=== PATIENT | male | born 1960 | race Hispanic/Latino ===

== ENCOUNTER 2021-06-12 13:31 | Emergency (ER) | payer BC ==
--- OUTSIDE RECORDS SUMMARY | 2021-06-12 13:33 | XMS REPORT | Continuity of Care Document ---
:1960 Author Organization [facility] t Address [address] [place] [address] Care Team Providers Name Role Phone YURIDIA Attending Clinician Unavailable MARYANNE Attending Clinician Unavailable Gino Attending Clinician Unavailable YURIDIA Admitting Clinician Unavailable MARYANNE Admitting Clinician Unavailable Gino Admitting Clinician Unavailable Payers Payer Name Policy Type Policy Number Effective Date Expiration Date S ource Problems Condition Condition Condition Status Onset Resolution Last Treating Co mments Source Name Details Category Date Date Treatment Clinician Date Vitamin D Vitamin D Problem Active [place] deficiency Deficiency 5-24 [facility]: [facility] Regular Regular Problem Active [place] astigmatis Astigmatis 5-04 da m m 00:00: [facility] Presbyopia Presbyopia Problem Active M [place] 5-04 da 00:00: [facility] 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 Social History Smoking Status Start Date Stop Date Source Never Smoker [facility] Medications Ordered Filled Start Stop Current Ordering Indication Dosage Frequency Signature Comments Components Source Medication Medication Date Date Medication? Clinician (SIG) Name Name diclofenac diclofenac No 1 BID diclofenac [place] sodium 75 sodium 75 sodium 75 da mg mg mg Medical tablet,chiki tablet,chiki tablet,del Group yed release yed release ayed Take 1 Take 1 release tablet tablet Take 1 twice a day twice a day tablet by oral by oral twice a route. route. day by oral route. naproxen naproxen No naproxen [facility] cholecalcif cholecalcif No 1capsul Q1D cholecalci [place] erica erica e(s) ferol da (vitamin (vitamin (vitamin Epi scop D3) 125 mcg D3) 125 mcg D3) 125 al (5,000 (5,000 mcg (5,000 Healt h unit) unit) unit) Outreac capsule capsule capsule h Take 1 Take 1 Take 1 Program capsule capsule capsule every day every day every day by oral by oral by oral route. route. route. doxycycline doxycycline No 1capsul BID doxycyclin [place] monohydrate monohydrate e(s) e d a 100 mg 100 mg monohydrat [facility] capsule capsule e 100 mg al Take 1 Take 1 capsule Health capsule capsule Take 1 Outreac twice a day twice a day capsule h by oral by oral twice a Progra m route for route for day by 30 days. 30 days. oral route for 30 days. hydroxychlo hydroxychlo No hydroxychl [place] roquine 200 roquine 200 oroquine da mg tablet mg tablet 200 mg Epi scop TAKE 1 TAKE 1 tablet al TABLET TABLET TAKE 1 Health TWICE A DAY TWICE A DAY TABLET Outreac BY ORAL BY ORAL TWICE A h ROUTE. ROUTE. DAY BY Program ORAL ROUTE. meloxicam meloxicam No 1 Q1D meloxicam [place] 15 mg 15 mg 15 mg da tablet Take tablet Take tablet [facility] 1 tablet 1 tablet Take 1 al every day every day tablet Hea lth by oral by oral every day Outr eac route with route with by oral h meals for meals for route with Program 90 days. 90 days. meals for 90 days. spironolact spironolact No 1 TID spironolac [place] one 50 mg one 50 mg tone 50 mg da tablet Take tablet Take tablet [facility] 1 tablet 3 1 tablet 3 Take 1 a l times a day times a day tablet 3 Health by oral by oral times a Outrea c route as route as day by h directed. directed. oral route Program as directed. sulfasalazi sulfasalazi No 2 BID sulfasalaz [place] ne 500 mg ne 500 mg ine 500 mg da tablet,chiki tablet,chiki tablet,del [facility] yed release yed release ayed a l Take 2 Take 2 release Health tablets tablets Take 2 Outreac twice a day twice a day tablets h by oral by oral twice a Progra m route for route for day by 90 days. 90 days. oral route for 90 days. 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 [facility] Index) Health Outreach Program BP Systolic 2021-03-14 00:00:00 114 mm[Hg] [facility] Body Weight 2021-03-14 00:00:00 3008 [oz_av] [facility] BP Diastolic 2021-03-14 00:00:00 68 mm[Hg] [facility] BP Diastolic 2021-01-16 00:00:00 74 mm[Hg] [facility]reach Program Height 2021-01-16 00:00:00 66 [in_i] [facility] BMI (Body Mass 2021-01-16 00:00:00 29.1 kg/m2 [place] [facility] services specialist [facility] Index) Health Outreach Program BP Systolic 2021-01-16 00:00:00 124 mm[Hg] [facility] Body Weight 2021-01-16 00:00:00 2880 [facility]oz_av[facility] BP Diastolic 2020-12-25 00:00:00 74 mm[Hg] [facility] Height 2020-12-25 00:00:00 66 [in_i] [facility] BMI (Body Mass 2020-12-25 00:00:00 28.9 kg/m2 [place] [facility] Index) Health Outreach Program BP Systolic 2020-12-25 00:00:00 134 mm[Hg] [place] [facility] Body Weight 2020-12-25 00:00:00 2864 [oz_av] [place] [facility] Height 2020-09-03 00:00:00 66 [in_i] [place] [facility] BMI (Body Mass 2020-09-03 00:00:00 29.9 kg/m2 [place] [facility] services specialist Conf[facility] Index) [facility] Outreach Program Body Weight 2020-09-03 00:00:00 185 [lb_av] [facility] BMI (Body Mass 2020-06-14 00:00:00 29.9 kg/m2 [place] [facility] specialist [facility] Index) [facility] Outreach Program BP Systolic 2020-06-14 00:00:00 138 mm[Hg] [place] [facility] Body Weight 2020-06-14 00:00:00 2964.8 [oz_av] [place] [facility] BP Diastolic 2020-06-14 00:00:00 80 mm[Hg] [place] [facility] Height 2020-06-14 00:00:00 66 [in_i] [place] [facility] BP Diastolic 2020-05-24 00:00:00 80 mm[Hg] [place] [facility] Height 2020-05-24 00:00:00 66 [in_i] [place] [facility] BMI (Body Mass 2020-05-24 00:00:00 29.5 kg/m2 [place] [facility] Index) [facility] Outreach Program BP Systolic 2020-05-24 00:00:00 134 mm[Hg] [place] [facility] Body Weight 2020-05-24 00:00:00 2928 [oz_av] [place] [facility] BP Diastolic 2018-11-10 00:00:00 80 mm[Hg] [facility] [facility] Height 2018-11-10 00:00:00 66 [in_i] [facility] BMI (Body Mass 2018-11-10 00:00:00 30.8 kg/m2 [facility] Medical Index) Group BP Systolic 2018-11-10 00:00:00 140 mm[Hg] [facility] Body Weight 2018-11-10 00:00:00 191 [lb_av] [facility] BP Diastolic 2018-10-27 00:00:00 83 mm[Hg] [facility] Height 2018-10-27 00:00:00 66 [in_i] [facility] BMI (Body Mass 2018-10-27 00:00:00 30[facility]8 [facility] BP Systolic 2018-10-27 00:00:00 141 mm[Hg] [facility] Body Weight 2018-10-27 00:00:00 191 [lb_av] [facility] Procedures Procedure Date / Time Performed Performing Clinician [facility] e US, duplex, venous, 2020-12-25 00:00:00 Scout bales [facility] lower extremity Health Outreach Program Screening for 2020-07-04 00:00:00 Dean Salgado iscopal Malignant Neoplasm of Health Out reach Colon Program unlisted imaging order 2018-10-27 00:00:00 [facility] Plan of Care Planned Activity Planned Date Details Comments Source Diagnostic Test 2021-03-14 CBC w/ auto diff [code Delaney oliver Pending 00:00:00 = CBC w/ auto diff] [facility] Outreach Progra m Diagnostic Test 2021-03-14 C reactive protein, [place] Pending 00:00:00 QN, serum or plasma [facility] [code = C reactive Outreach Program protein, QN, serum or plasma] Diagnostic Test 2021-03-14 ESR (erythrocyte [place] Pending 00:00:00 sedimentation rate), [facility] blood [code = ESR Outreach P rogram (erythrocyte sedimentation rate), blood] Diagnostic Test 2021-03-14 CMP, serum or plasma Abdul remedios Pending 00:00:00 [code = CMP, serum or [facility] plasma] Outreach Progra m Diagnostic Test 2021-03-14 microalbumin/creatinin Delaney oliver Pending 00:00:00 e, mass ratio, urine [facility] [code = Outreach Progra m microalbumin/creatinin e, mass ratio, urine] Diagnostic Test 2021-03-14 SERG (antinuclear [place] Pending 00:00:00 antibodies) screen, [facility] serum [code = SERG Outreach P rogram (antinuclear antibodies) screen, serum] Diagnostic Test 2021-03-14 albumin/creatinine, [place] Pending 00:00:00 mass ratio, urine [facility] [code = Outreach Progra m albumin/creatinine, mass ratio, urine] Diagnostic Test 2021-03-14 vitamin D, 25-hydroxy, [place] Pending 00:00:00 total, serum [code = [facility] vitamin D, 25-hydroxy, Outre ach Program total, serum] Diagnostic Test 2021-03-14 lipid panel, serum [place] [facility] Pending 00:00:00 [code = lipid panel, [facility] serum] Outreach Progra m Diagnostic Test 2021-03-14 BNP (B-type [place] Pending 00:00:00 natriuretic peptide), [facility] serum or plasma [code Outrea Program = BNP (B-type natriuretic peptide), serum or plasma] Diagnostic Test 2021-03-14 magnesium, serum or [place] Pending 00:00:00 plasma [code = [facility] magnesium, serum or Outreach Program plasma] Diagnostic Test 2021-03-14 CMP, serum or plasma Abdul remedios Pending 00:00:00 [code = CMP, serum or [facility] plasma] Outreach Progra m Diagnostic Test 2021-03-14 D-dimer, quant, plasma [place] Pending 00:00:00 [code = D-dimer, [facility]lt quant, plasma] Outreach Prog frantz Encounters Start End Encounter Admission Attending Care Care Encounter Source Date/Time Date/Time Type Type Clinicians Facility Department ID 2021-03-14 2021-03-14 Outpatient MORAIMA ERNANDEZ [id number] [place] 04:46:00 04:46:[place] [id number] [place] [facility] Outreac h Program 2021-03-14 2021-03-14 Destiney ERNANDEZ [place] - [id number] [place] bonillagonathan 00:00:00 00:00:00 Kubeckamairani Galindo, Confuc[facility]ism [facility] CHEMICAL LABORATORY SCIENTIST: [address], [facility] [address] Progr am , Ph. 2021-01-16 2021-01-16 Outpatient GILBERT_BENNY [facility] 101 [id number] [place] 12:55:00 12:55:[place] [id number] [place] [facility] 2021-01-16 2021-01-16 [facility] [id number] [place] 00:00:00 00:00:00 Dean Vaughn FORMING TUBE SELECTOR-CHEMICAL LABORATORY SCIENTIST-C: [facility] Epi scop [address] [place] [address] Tessy am , Ph. 2020-12-25 2020-12-25 Outpatient GILBERT[facility]BENNY [facility] 101 [id number] [place] 04:00:00 04:[place] [id number] [place] [facility] 2020-12-25 2020-12-25 [facility] - [id number] [place] 00:00:00 00:00:00 Dean Vaughn FORMING TUBE SELECTOR-CHEMICAL LABORATORY SCIENTIST-C: [facility] [address] [facility] [address] Progr am , Ph. 2020-10-22 2020-10-22 Outpatient [facility]ERT[facility]BENNY [facility] 101 [id number] [place] 10:28:00 10:28:[place] [id number] [place] [facility] 2020-09-20 2020-09-20 Outpatient [facility]ERT[facility]KAT [facility] 101 [id number] [place] 02:15:00 02:15:[place] [id number] [place] [facility] 2020-09-03 2020-09-03 Outpatient GILBERT_KAT [facility] 101 [id number] [place] 12:03:00 12:03:[place] [id number] [place] [facility] 2020-09-03 2020-09-03 Gayle [facility] [place] - [id number] [place] 00:00:00 00:00:00 Dean Dean MD: 111 Confuc[facility]ism [facility] p [place] F, [facility] [place], [place] [facility] [address] [facility] , Ph. h ([phone]) Program 2020-07-10 2020-07-10 Outpatient TRIPP_BENNY [facility] 101 [id number] [place] 06:51:00 06:51:[place] [id number] [place] [facility] 2020-06-14 2020-06-14 Outpatient FABIOLABERT_BENNY [place] [id number] [place] 01:41:00 01:41:[place] [id number] [place] [facility] 2020-06-14 2020-06-14 Destiney [facility] [place] - [id number] [place] 00:00:00 00:00:00 Yareli Galindo, Confucianism [facility] CHEMICAL LABORATORY SCIENTIST: [address] [facility] [address] [facility] [address] Tessy renae , Ph. 2020-05-28 2020-05-28 Outpatient TRIPP_BENNY [place] [id number] [place] 10:16:00 10:16:[place] [id number] [place] [facility] 2020-05-24 2020-05-24 Outpatient TRIPP_BENNY [facility] 101 [id number] [place] 12:57:00 12:57:[place] [id number] [place] [facility] 2020-05-24 2020-05-24 Destiney [facility] [place] - [id number] [place] 00:00:00 00:00:00 Yareli Galindo, Confucianism [facility] CHEMICAL LABORATORY SCIENTIST: [address] [facility] [address] Tessy renea , Ph. 2020-05-22 2020-05-22 Outpatient GILBERT_KAT MEHOP [facility] 101 [id number] [place] 10:32:00 10:32:[place] [id number] [place] [facility] 2020-04-22 2020-04-22 Outpatient MARYANNE ERNANDEZ [facility] [id number] [place] 04:19:00 04:19:00 [id number] da [facility] 2020-03-20 2020-03-20 Outpatient Gino [facility] [place] 02:35:00 02:35:00 [id number] Medical Group 2018-11-10 2018-11-10 [facility] [place] - [id number] [place] 00:00:00 00:00:00 Discovery rodolfo Hernandez MD: [address] [place] [address] [address], [place] [address] , Ph. 2018-10-27 2018-10-27 Sammy [facility] [place] - [id number] M [place] 00:00:00 00:00:00 Discovery rodolfo Hernandez MD: [address] [place] [address] [address], [place] [address] , Ph. Results Test Description Test Time Test Comments Results Result Comments Source CBC W Auto Differential panel - Blood 2020-12-26 00:00:00 Test Item Value Reference Range Interpretation Comme nts Leukocytes [#/volume] in Blood by Automated count (test 8.2 x10e3/u L 3.4-10.8 code = 6690-2) Erythrocytes [#/volume] in Blood by Automated count 4.49 x10e6/uL 4 .14-5.80 (test code = 789-8) Hemoglobin [Mass/volume] in Blood (test code = 718-7) 12.6 g/dL 13.0-17.7 L Hematocrit [Volume Fraction] of Blood by Automated count 39.5 % 37.5-51.0 (test code = 4544-3) MCV [Entitic volume] by Automated count (test code = 88 fL 7 9-97 787-2) MCH [Entitic mass] by Automated count (test code = 28.1 pg 26. 6-33.0 785-6) MCHC [Mass/volume] by Automated count (test code = 31.9 g/dL 31. 5-35.7 786-4) Erythrocyte distribution width [Ratio] by Automated 11.9 % 11 .6-15.4 count (test code = 788-0) Platelets [#/volume] in Blood by Automated count (test 317 x10e3/uL 150-450 code = 777-3) Neutrophils/100 leukocytes in Blood by Automated count 68 % not estab. (test code = 770-8) Lymphocytes/100 leukocytes in Blood by Automated count 16 % not estab. (test code = 736-9) Monocytes/100 leukocytes in Blood by Automated count 10 % n ot estab. (test code = 5905-5) Eosinophils/100 leukocytes in Blood by Automated count 4 % not estab. (test code = 713-8) Basophils/100 leukocytes in Blood by Automated count 1 % n ot estab. (test code = 706-2) immature cells (test code = immature cells) sole cutter Neutrophils [#/volume] in Blood by Automated count (test 5.7 x10e3/ uL 1.4-7.0 code = 751-8) Lymphocytes [#/volume] in Blood by Automated count (test 1.3 x10e3/ uL 0.7-3.1 code = 731-0) Monocytes [#/volume] in Blood by Automated count (test 0.8 x10e3/uL 0.1-0.9 code = 742-7) Eosinophils [#/volume] in Blood by Automated count (test 0.3 x10e3/ uL 0.0-0.4 code = 711-2) Basophils [#/volume] in Blood by Automated count (test 0.0 x10e3/uL 0.0-0.2 code = 704-7) Immature granulocytes/100 leukocytes in Blood by 1 % not e stab. Automated count (test code = 60244-9) Immature granulocytes [#/volume] in Blood by Automated 0.0 x10e3/uL 0.0-0.1 count (test code = 09244-0) Nucleated erythrocytes/100 leukocytes [Ratio] in Blood sole cutter by Automated count (test code = 30256-6) Morphology [Interpretation] in Blood Narrative (test sole cutter code = 57677-7) [facility] Outreach ProgramComprehensive metabolic 2000 panel - Serum or [id number] 00:00:00 Test Item Value Reference Range Interpretation Comments Glucose [Mass/volume] in 87 mg/dL 65-99 Serum or Plasma (test code = 2345-7) Urea nitrogen [Mass/volume] 15 mg/dL 6-24 in Serum or Plasma (test code = 3094-0) Creatinine [Mass/volume] in 0.62 mg/dL 0.76-1.27 L Serum or Plasma (test code = 2160-0) Glomerular filtration 109 mL/min/1.73 >59 rate/1.73 sq M.predicted among non-blacks [Volume Rate/Area] in Serum, Plasma or Blood by Creatinine-based formula (CKD-EPI) (test code = 08335-4) Glomerular filtration 126 mL/min/1.73 >59 rate/1.73 sq M.predicted among blacks [Volume Rate/Area] in Serum, Plasma or Blood by Creatinine-based formula (CKD-EPI) (test code = 87927-8) Urea nitrogen/Creatinine 24 9-20 H [Mass Ratio] in Serum or Plasma (test code = 3097-3) Sodium [Moles/volume] in 139 mmol/L 134-144 Serum or Plasma (test code = 2951-2) Potassium [Moles/volume] in 4.8 mmol/L 3.5-5.2 Serum or Plasma (test code = 2823-3) Chloride [Moles/volume] in 103 mmol/L 96-106 Serum or Plasma (test code = 2075-0) Carbon dioxide, total 25 mmol/L 20-29 [Moles/volume] in Serum or Plasma (test code = 2027-9) Calcium [Mass/volume] in 9.4 mg/dL 8.7-10.2 Serum or Plasma (test code = 87302-1) Protein [Mass/volume] in 7.1 g/dL 6.0-8.5 Serum or Plasma (test code = 2885-2) Albumin [Mass/volume] in 4.0 g/dL 3.8-4.9 Serum or Plasma (test code = 1751-7) Globulin [Mass/volume] in 3.1 g/dL 1.5-4.5 Serum by calculation (test code = 67384-5) Albumin/Globulin [Mass Ratio] 1.3 1.2-2.2 in Serum or Plasma (test code = 1759-0) Bilirubin.total [Mass/volume] 0.3 mg/dL 0.0-1.2 in Serum or Plasma (test code = 1975-2) Alkaline phosphatase 99 IU/L 48-121 [Enzymatic activity/volume] in Serum or Plasma (test code = 6768-6) Aspartate aminotransferase 30 IU/L 0-40 [Enzymatic activity/volume] in Serum or Plasma (test code = 1920-8) Alanine aminotransferase 16 IU/L 0-44 [Enzymatic activity/volume] in Serum or Plasma (test code = 1742-6) [facility] FEU [Mass/volume] in Platelet poor [id number] 00:00:00 Test Item Value Reference Range Interpretation Comments Fibrin D-dimer FEU 0.82 mg/L feu 0.00-0.49 H [Mass/volume] in Platelet poor plasma (test code = 21574-8) [facility] sedimentation rate 2020-12-26 00:00:00 Test Item Value Reference Range Interpretation Comments Erythrocyte sedimentation rate by 40 mm/HR 0-30 H Westergren method (test code = 4537-7) [facility]
[2021-06-12 14:58] LABS: Lymphocytes % 8.9 % (15.3-44.8); MPV 6.7 fL (7.6-11.3); RBC Red Blood Cell Count 4.14 M/uL (4.33-5.43)
[2021-06-12 15:00] LABS: Protime INR 1.13
--- NOTE | 2021-06-12 15:59 | RAD REPORT ---
EXAM DESCRIPTION: US - Extrem Venous W Compress Tate - 06/12/2021 3:35 pm CLINICAL HISTORY: Edema COMPARISON: None. TECHNIQUE: Real-time sonographic evaluation of the bilateral lower extremity deep venous systems was performed. FINDINGS: Normal compressibility, flow augmentation, phasic flow and spontaneous flow is identified in both the left and right lower extremity deep venous systems. No intraluminal filling defects seen. Large right inguinal lymph node measuring 2 cm. Left groin mass with mixed echotexture measuring 6.9 cm. IMPRESSION: No DVT in either lower extremity. Left groin mass measuring 6.9 cm neoplasm not excluded. Other enlarged lymph nodes noted. Consider CT of the abdomen pelvis for further evaluation .
--- NOTE | 2021-06-12 16:00 | RAD REPORT ---
EXAM DESCRIPTION: RAD - Chest Single View - 06/12/2021 3:42 pm CLINICAL HISTORY: edema COMPARISON: No comparisons FINDINGS: Lines: None. Lungs: Linear opacity at the left lung base likely representing scarring or subsegmental atelectasis. Pleural: No significant pleural effusions or pneumothorax. Cardiac: The heart size is within normal limits. Bones: No acute fractures. Other: IMPRESSION: No acute cardiopulmonary disease.
[2021-06-12 16:09] LABS: Albumin 1.8 g/dL (3.4-5.0); Bilirubin Direct 0.2 mg/dL (0-0.2); Bilirubin Total 0.4 mg/dL (0.2-1.0); Protein, Total 6.6 g/dL (6.4-8.2); Troponin High Sensitivity 4.7 pg/mL (<58.9)
[2021-06-12 16:19] LABS: Blood Morphology Comment NOT SEEN (NOT SEEN); Platelet Estimate INCR
--- NOTE | 2021-06-12 16:23 | RAD REPORT ---
EXAM DESCRIPTION: CTStone Protocol - 06/12/2021 4:08 pm CLINICAL HISTORY: kidney failure COMPARISON: No comparisons TECHNIQUE: CT of the abdomen and pelvis was performed. All CT scans are performed using dose optimization technique as appropriate and may include automated exposure control or mA/KV adjustment according to patient size. FINDINGS: Lower chest: Small left greater than right pleural effusions. Underlying atelectasis. Anup nary artery calcifications. Liver: No acute abnormality or suspicious lesions. Biliary: No biliary ductal dilatation. Stomach: No significant focal abnormality. Duodenum: No significant focal abnormality. Pancreas: No significant abnormality. Spleen: No significant abnormality. Adrenal: No suspicious lesions. Kidney/ureter: Bilateral hydronephrosis. Right renal calculi. Right upper pole renal lesion which is likely a cyst. No renal calculi. Retroperitoneum: Retroperitoneal and pelvic lymphadenopathy. This is bulky, particularly at the left iliac and inguinal chain. A large left inguinal mass measures 6.1 cm. A left external iliac lymph nod e measures 5.8 cm. Vascular: Atherosclerosis . Bowel: No significant focal abnormality. Peritoneum: No ascites or free air. Bladder: Eccentric thickening at the posterior aspect of the bladder. Reproductive: Pronounced scrotal edema. Bones: Soft tissue mass eroding into the left ischium and acetabulum measuring over 8.3 cm. Question other small lytic process along the anterior aspect of the sacrum. Other: n/a IMPRESSION: 1. Pathologic lymphadenopathy including soft tissue mass invading the left ischium and i liac bone which encompasses the acetabulum. This is consistent with malignancy. This could be a lymph oproliferative disorder or metastatic disease. The inguinal lymph nodes would be the easiest location for biopsy. 2. Bilateral hydronephrosis. This could be secondary to mass effect on the ureters from the pelvic ly mphadenopathy. 3. Anasarca including pleural effusions. Lower extremity swelling may be secondary to mass effect on the lower extremity veins from the adenopathy.
[2021-06-12 17:06] LABS: Urine Blood Negative (Negative); Urine Glucose Negative (Negative); Urine Protein Negative (Negative); Urine Specific Gravity 1.015 (1.005-1.030)
[2021-06-12] MEDS ORDERED: CEFEPIME 1 GM/VIAL ONE (17:49)
[2021-06-12] MEDS ORDERED: NA CHLORIDE 0.9% 100 ML IV ONE (17:49)
[2021-06-12 17:58] LABS: Urine Bacteria <20 /HPF (NONE SEEN); Urine RBC <5 /HPF (NONE SEEN)
[2021-06-12] MEDS ORDERED: ALBUTEROL 2.5 MG/3 ML NEB SOL ONE (18:46)
[2021-06-12] MEDS ORDERED: FUROSEMIDE 40 MG/4 ML VIAL ONE (18:46)
[2021-06-12] MEDS ORDERED: INSULIN -REGULAR HUMAN 50 UNIT/0.5 ML ML ONE (18:47)
[2021-06-12] MEDS ORDERED: CALCIUM GLUCONATE 1 GM IVPB 1 GM/50 ML BAG IV ONE (18:48)
[2021-06-12] MEDS ORDERED: SOD POLYSTYREN SUL 15 GM/60 ML UCUP ONE (18:48)
[2021-06-12] MEDS ORDERED: D50W 25 GM/50 ML SYRINGE IV ONE (18:50)
--- NOTE | 2021-06-12 19:02 | ER ---
Nurse's Notes [facility] Name: Lul Calvillo Age: 60 yrs Sex: Male : 1960 Arrival Date: 06/12/2021 Time: 13:33 Bed 25 Private MD: Diagnosis: Acute kidney failure, unspecified;Hyperkalemia;Edema, unspecified Presentation: 06/12 13:59 Chief complaint: Spouse and/or significant other states: they were called by their PCP ap3 for abnormal labs relating to kidney function. It is reported their PCP informed them to come be evaluated by the ER. Patient was dx with cancer of unknown origin at the beginning of May, and will start treatment next week. states they weren't informed of the type of cancer, but believes it to be related to the kidney. Coronavirus screen: At this time, the client does not indicate any symptoms associated with coronavirus-19. Ebola Screen: No symptoms or risks identified at this time. Initial Sepsis Screen: Does the patient meet any 2 criteria? No. Patient's initial sepsis screen is negative. Does the patient have a suspected source of infection? No. Patient's initial sepsis screen is negative. Risk Assessment: Do you want to hurt yourself or someone else? Patient reports no desire to harm self or others. Onset of symptoms was June 12, 2021. 13:59 Method Of Arrival: Wheelchair ap3 13:59 Acuity: CORETTA 3 ap3 14:04 Chief complaint:. ap3 Triage Assessment: 14:03 General: Appears in no apparent distress. comfortable, Behavior is calm, cooperative. ap3 Pain: Denies pain. Neuro: Level of Consciousness is awake, alert, obeys commands, Oriented to person, place, time, situation, Appropriate for age. Respiratory: Airway is patent Respiratory effort is even, unlabored, Respiratory pattern is regular, symmetrical. Derm:. Musculoskeletal: Swelling present in left leg. Historical: - Allergies: 14:00 No Known Allergies; ap3 - Home Meds: 14:00 hydrocodone-acetaminophen 10-325 mg Oral tab 1 tab every 4 hours for pain [Active]; ap3 prochlorperazine maleate 10 mg Oral tab 1 tab every 6 hours for cancer chemotherapy-induced nausea and vomiting [Active]; - Immunization history:: Client reports having NOT received the Covid vaccine. Pneumococcal vaccine is not up to date, Flu vaccine is not up to date. - Social history:: Smoking status: Patient denies any tobacco usage or history of. Screenin:06 Abuse screen: Denies threats or abuse. Tuberculosis screening: No symptoms or risk ap3 factors identified. 20:01 Nutritional screening: Had unintentional weight loss of 10 pounds or more. Fall Risk No sv1 fall in past 12 months (0 pts). Secondary diagnosis (15 points) IV access (20 points). Ambulatory Aid- None/Bed Rest/Nurse Assist (0 pts). Gait- Weak (10 pts.). Mental Status- Oriented to own ability (0 pts). Total Padilla Fall Scale indicates Low Risk Score (25-44 pts). Fall prevention measures have been instituted. Side Rails Up X 2 Placed close to Nursing Station Family Present and informed to notify staff if they need to leave bedside. Assessment: 14:15 General: Appears in no apparent distress. obese, Behavior is calm, quiet. Pain: Denies ld1 pain. Cardiovascular: Capillary refill < 3 seconds Edema pitting to left midcalf, left foot, left toes, right midcalf, right ankle, right foot and right toes Rhythm is regular. Respiratory: No deficits noted. Breath sounds are clear bilaterally. GI: Abd is rigid X 4 quads. : Derm: vitiligo present. 14:57 Cardiovascular: Edema is 4+ to left upper thigh, left lower thigh, left knee, left ld1 midcalf, left ankle, left foot, right upper thigh, right lower thigh, right knee, right midcalf, right ankle, right foot and right toes. 17:39 Reassessment: Patient appears in no apparent distress at this time. No changes from jd3 previously documented assessment. Patient and/or family updated on plan of care and expected duration. Pain level reassessed. Patient is alert, oriented x 3, equal unlabored respirations, skin warm/dry/pink. 21:57 Reassessment: Report called to Jami DARLING. Donnie morgan ems here to transfer the patient..sv1 Vital Signs: 13:59 BP 123 / 78; Pulse 80; Resp 18; Temp 98.3; Pulse Ox 100% ; Weight 88.9 kg; Height 5 ft. ap3 6 in. (167.64 cm); 17:39 BP 126 / 80; Pulse 80; Resp 18 S; Pulse Ox 100% on R/A; jd3 20:01 BP 139 / 68 RA Supine (auto/reg); Pulse 135 MON; Resp 20 S; Pulse Ox 96% on R/A; sv1 21:54 BP 123 / 75 LA Supine (auto/reg); Pulse 112 MON; Resp 18 S; Pulse Ox 94% on R/A; sv1 13:59 Body Mass Index 31.63 (88.90 kg, 167.64 cm) ap3 ED Course: 13:33 Patient arrived in ED. as 14:00 Triage completed. ap3 14:04 Arm band placed on left wrist. ap3 14:07 Adriel Orozco PA is PHCP. cp 14:07 Eva Valles MD is Attending Physician. cp 14:16 Shandra Means, PHONG is Primary Nurse. ld1 14:33 Inserted saline lock: 20 gauge in left antecubital area, using aseptic technique. Blood ld1 collected. 15:03 Notified Nurse Practitioner and/or Physician Preassembler And Inspector of a critical lab result(s), WBC jd3 of 22.3. 15:35 US Extremity Venous W Compression Tate In Process Unspecified. EDMS 15:41 XRAY Chest (1 view) In Process Unspecified. EDMS 15:45 EKG done, by ED staff. tp1 16:07 CT Stone Protocol In Process Unspecified. EDMS 20:01 Patient has correct armband on for positive identification. Placed in gown. Bed in low sv1 position. Call light in reach. Side rails up X2. Adult w/ patient. 20:12 SARS-COV-2 RT PCR (Document "Date of Onset" if Symptomatic) Sent. sv1 21:[address] [facility] [place] spoke to [facility] to give her the covid result. mw2 21:27 administrative approval given by Miguel Miller/ patient has been accepted to [address] [facility] [place] bed 4E16/ Dr. Kaufman accepted the patient in transfer/ report to be called to [phone]. Administered Medications: 18:02 Drug: Cefepime 2 grams Route: IVPB; Rate: 200 ml/hr; Infused Over: 30 mins; Site: left ke1 antecubital; 19:14 Drug: Insulin Regular Human 5 units {Co-Signature: jmeg (Hansel Ventura RN).} Route: ke1 Sub-Q; Site: right lower abdomen; 19:14 Drug: Lasix (furosemide) 40 mg Route: IVP; Site: left antecubital; ke1 19:14 Drug: Calcium Gluconate 1 grams Route: IVPB; Infused Over: 60 mins; Site: left ke1 antecubital; 19:16 Drug: Kayexalate (polystyrene) 30 grams Route: PO; ke1 19:16 Drug: Albuterol 2.5 mg Route: Inhalation; ke1 19:16 Drug: D50W 50 ml Route: IVP; Site: left antecubital; ke1 Outcome: 19:02 ER care complete, transfer ordered by MD. falcon 22:11 Patient left the ED. mw2 Signatures: Dispatcher [employer] EDAlee Preston Corey, PA PA cp Davies, Jonathon, RN RN jd3 Priscila Pantoja RN RN ap3 Maciej Ye mw2 Shandra Means RN RN ld1 Elidia Higgins tp1 Martín Sevilla RN RN sv1 Jes Mancuso RN RN ke1 Hansel Ventura RN jd3 Corrections: (The following items were deleted from the chart) 14:05 13:59 Chief complaint: Spouse and/or significant other states: they were called by ap3 their PCP for abnormal labs relating to kidney function. It is reported their PCP informed them to come be evaluated by the ER ap3
--- NOTE | 2021-06-12 19:02 | EDPHYS ---
Physician Documentation [facility] Name: Lul Calvillo Age: 60 yrs Sex: Male : 1960 Arrival Date: 06/12/2021 Time: 13:33 Bed 25 Private MD: ED Physician Eva Valles HPI: 06/12 14:45 This 60 yrs old Male presents to ER via Wheelchair with complaints of Abnormal cp Lab Results. Historical: - Allergies: 14:00 No Known Allergies; ap3 - Home Meds: 14:00 hydrocodone-acetaminophen 10-325 mg Oral tab 1 tab every 4 hours for pain [Active]; ap3 prochlorperazine maleate 10 mg Oral tab 1 tab every 6 hours for cancer chemotherapy-induced nausea and vomiting [Active]; - Immunization history:: Client reports having NOT received the Covid vaccine. Pneumococcal vaccine is not up to date, Flu vaccine is not up to date. - Social history:: Smoking status: Patient denies any tobacco usage or history of. ROS: 14:50 Constitutional: Negative for body aches, chills, fever, poor PO intake. cp 14:50 Eyes: Negative for injury, pain, redness, and discharge. cp 14:50 ENT: Negative for drainage from ear(s), ear pain, sore throat, difficulty swallowing, difficulty handling secretions. 14:50 Cardiovascular: Positive for edema, Negative for chest pain, palpitations. 14:50 Respiratory: Negative for cough, shortness of breath, wheezing. 14:50 Abdomen/GI: Negative for abdominal pain, nausea, vomiting, and diarrhea. 14:50 Back: Negative for pain at rest, pain with movement. 14:50 : Negative for urinary symptoms. 14:50 Neuro: Negative for altered mental status, dizziness, headache, numbness, weakness. 14:50 All other systems are negative. Exam: 14:55 Constitutional: The patient appears in no acute distress, alert, awake, cp non-diaphoretic, non-toxic, well developed, well nourished. 14:55 Head/Face: Normocephalic, atraumatic. cp 14:55 Eyes: Periorbital structures: appear normal, Conjunctiva: normal, no exudate, no injection, Sclera: no appreciated abnormality, Lids and lashes: appear normal, bilaterally. 14:55 ENT: External ear(s): are unremarkable, Nose: is normal, Mouth: Lips: moist, Oral mucosa: moist, Posterior pharynx: Airway: no evidence of obstruction, patent. 14:55 Neck: ROM/movement: is normal, is supple, without pain, no range of motions limitations. 14:55 Chest/axilla: Inspection: normal. 14:55 Cardiovascular: Rate: normal, Rhythm: regular, Edema: pedal edema, that is marked, JVD: is not appreciated. 14:55 Respiratory: the patient does not display signs of respiratory distress, Respirations: normal, no use of accessory muscles, no retractions, labored breathing, is not present, Breath sounds: are clear throughout, no decreased breath sounds, no stridor, no wheezing. 14:55 Abdomen/GI: Inspection: distension, that is mild, Palpation: abdomen is soft and non-tender, in all quadrants. 14:55 Back: pain, is absent, ROM is normal. 14:55 Skin: cellulitis, is not appreciated, no rash present. 14:55 Neuro: Orientation: to person, place \\T\\ time. Mentation: is normal, Motor: moves all fours, strength is normal, Sensation: is normal. 15:43 ECG was reviewed by the Attending Physician. Vital Signs: 13:59 BP 123 / 78; Pulse 80; Resp 18; Temp 98.3; Pulse Ox 100% ; Weight 88.9 kg; Height 5 ft. ap3 6 in. (167.64 cm); 17:39 BP 126 / 80; Pulse 80; Resp 18 S; Pulse Ox 100% on R/A; jd3 20:01 BP 139 / 68 RA Supine (auto/reg); Pulse 135 MON; Resp 20 S; Pulse Ox 96% on R/A; sv1 21:54 BP 123 / 75 LA Supine (auto/reg); Pulse 112 MON; Resp 18 S; Pulse Ox 94% on R/A; sv1 13:59 Body Mass Index 31.63 (88.90 kg, 167.64 cm) ap3 MDM: 14:27 Patient medically screened. 17:20 Physician consultation: Abdullahi Prado MD was called at 17:20, left message on voicemail. 17:25 Data reviewed: vital signs, nurses notes, lab test result(s), EKG, radiologic studies, CT scan, plain films, ultrasound, I have discussed the patient's presentation/case with the attending Emergency Department Physician;. 19:21 Physician consultation: was contacted at 19:21, regarding regarding transfer, to [facility]. patient's condition, accepting physician will be DR Kaufman, hospitalist. 06/12 14:36 Order name: Basic Metabolic Panel 06/12 16:48 Interpretation: Normal except: K 6.0; BUN 106; CRE 10.80; GFR 5; CA 7.9. 06/12 14:36 Order name: CBC with Diff; Complete Time: 16:37 06/12 15:15 Interpretation: Normal except: WBC 22.30; RBC 4.14; HGB 10.0; HCT 31.0; MCV 74.9; MCH cp 24.1; PLT 417; RDW 16.9; MPV 6.7; JEANNA% 84.3; LYM% 8.9; NEUT A 18.8. 06/12 14:36 Order name: LFT's 06/12 17:07 Interpretation: Normal except: ALK 198; ALB 1.8; GLOB 4.8; A/G 0.4. 06/12 14:36 Order name: Magnesium 06/12 14:36 Order name: NT PRO-BNP 06/12 17:07 Interpretation: Abnormal: NT PRO-BNP 1630. 06/12 14:36 Order name: PT-INR; Complete Time: 15:15 06/12 14:36 Order name: Troponin HS 06/12 15:51 Order name: Procalcitonin 06/12 15:51 Order name: Lactate 06/12 15:51 Order name: Blood Culture Adult (2) 06/12 15:52 Order name: Procalcitonin; Complete Time: 18:20 EDMS 06/12 18:20 Interpretation: Abnormal: Procalcitonin 0.25. 06/12 15:52 Order name: Lactate; Complete Time: 18:20 EDMS 06/12 15:52 Order name: Blood Culture EDVA 06/12 15:52 Order name: Urine Microscopic Only 06/12 14:36 Order name: XRAY Chest (1 view); Complete Time: 16:37 06/12 14:36 Order name: EKG; Complete Time: 14:37 cp 06/12 14:36 Order name: Cardiac monitoring; Complete Time: 14:39 cp 06/12 14:36 Order name: US Extremity Venous W Compression Tate; Complete Time: 16:37 cp 06/12 15:53 Order name: Urine Microscopic Only; Complete Time: 18:20 EDMS 06/12 15:56 Order name: CT Stone Protocol; Complete Time: 16:37 cp 06/12 16:19 Order name: Manual Differential; Complete Time: 16:37 EDMS 06/12 17:06 Order name: Urine Dipstick-Ancillary; Complete Time: 17:07 EDMS 06/12 18:48 Order name: SARS-COV-2 RT PCR (Document "Date of Onset" if Symptomatic) em1 06/12 14:36 Order name: EKG - Nurse/Tech; Complete Time: 15:45 cp 06/12 14:36 Order name: IV Saline Lock; Complete Time: 14:39 cp 06/12 14:36 Order name: Labs collected and sent; Complete Time: 14:39 cp 06/12 14:36 Order name: O2 Per Protocol; Complete Time: 14:39 cp 06/12 14:36 Order name: O2 Sat Monitoring; Complete Time: 14:39 cp 06/12 15:16 Order name: Bladder Scanner: pre and post void; Complete Time: 17:10 cp 06/12 15:52 Order name: Urine Dipstick-Ancillary (obtain specimen); Complete Time: 17:09 cp EC:43 Rate is 83 beats/min. Rhythm is regular. AR interval is normal. QRS interval is normal. cp QT interval is normal. T waves are Inverted in leads III, aVR. Interpreted by me. Reviewed by me. Administered Medications: 18:02 Drug: Cefepime 2 grams Route: IVPB; Rate: 200 ml/hr; Infused Over: 30 mins; Site: left ke1 antecubital; 19:14 Drug: Insulin Regular Human 5 units {Co-Signature: jd3 (Hansel Ventura RN).} Route: ke1 Sub-Q; Site: right lower abdomen; 19:14 Drug: Lasix (furosemide) 40 mg Route: IVP; Site: left antecubital; ke1 19:14 Drug: Calcium Gluconate 1 grams Route: IVPB; Infused Over: 60 mins; Site: left ke1 antecubital; 19:16 Drug: Kayexalate (polystyrene) 30 grams Route: PO; ke1 19:16 Drug: Albuterol 2.5 mg Route: Inhalation; ke1 19:16 Drug: D50W 50 ml Route: IVP; Site: left antecubital; [facility] Disposition: 06/13 12:55 Co-signature as Attending Physician, Eva Valles MD I agree with the assessment and sp3 plan of care. Disposition Summary: 06/12/21 19:02 Transfer Ordered Transfer Location: [facility] cp Reason: Higher level of care cp Condition: Stable cp Problem: new cp Symptoms: have improved cp Accepting Physician: DR Kaufman(06/12/21 22:11) mw2 Diagnosis - Acute kidney failure, unspecified cp - Hyperkalemia cp - Edema, unspecified cp Forms: - Medication Reconciliation Form cp - SBAR form cp Signatures: Dispatcher [employer] EDMS Adriel Orozco PA PA cp Priscila Pantoja RN RN ap3 Maciej Ye mw2 Eva Valles MD MD sp3 Jes Mancuso RN RN ke1 Hansel Ventura RN jd3 Corrections: (The following items were deleted from the chart) 06/12 17:09 15:51 Ureña ordered. cp jd3 19: 19:02 Doctor cp cp 22:11 19:22 DR Kaufman cp mw2
[2021-06-12 22:09] LABS: Magnesium 2.2
[2021-06-12 22:40] VITALS: TEMP 98.3
[2021-06-12 22:46] VITALS: BP 123/75; O2SAT 94
== END 2021-06-12 22:11 | disposition short-term general hospital (02) ==
LOC: ER 13:31
DX: N17.9 Acute kidney failure, unspecified (principal); E87.5 Hyperkalemia; R60.9 Edema, unspecified; Z20.822 Contact with and (suspected) exposure to COVID-19
CPT/HCPCS: 93005; 87040 ×2; 85025; 80048; 36415; 83735; 87205; 85610; 80076; 83605; 84484; 84145; 83880; 76377; 74176; 71045; 93970; 96375; 96372; 96374; 99284; U0003; J1940; J0610; J0692; 81003; 81015

== ENCOUNTER 2021-07-18 12:52 | Emergency (ER) | payer BC ==
--- OUTSIDE RECORDS SUMMARY | 2021-07-18 12:57 | XMS REPORT | Continuity of Care Document ---
:1960 Author Organization [facility] t Address [address] [place] [address] Care Team Providers Name Role Phone EUGENIO STACY Attending Clinician Unavailable ESTELLE Attending Clinician Unavailable YURIDIA Attending Clinician Unavailable MARYANNE Attending Clinician Unavailable Gino Attending Clinician Unavailable ESTELLE Admitting Clinician Unavailable YURIDIA Admitting Clinician Unavailable MARYANNE Admitting Clinician Unavailable Gino Admitting Clinician Unavailable Payers Payer Name Policy Type Policy Number Effective Date Expiration Date [id number] 2021 00:00:00 BLUE/ESSENTIALS Problems Condition Condition Condition Status Onset Resolution [...] Disorder 5-04 da 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 [facility] Arthritis Arthritis Problem Active [place] [facility] Allergies, Adverse Reactions, Alerts Allergy Allergy Status Severity Reaction(s) Onset Inactive Treating Comm ents Source Name Type Date Date Clinician NO KNOWN Allergy Active [facility] Social History Smoking Status Start Date Stop Date Source Never Smoker [facility] Medications Ordered Filled Start [...] Source Name Name Tdap Tdap 2015-05-03 Completed [place] 00:[facility] Vital Signs Vital Name Observation Time Observation Value Comments Source HEIGHT 2021-06-13 00:00:00 167.6 cm WEIGHT 2021-06-13 00:00:00 88.633 kg HEIGHT 2021-06-13 00:00:00 167.6 cm WEIGHT 2021-06-13 00:00:00 88.633 kg Height 2021-03-14 00:00:00 66 [in_i] [facility] BMI (Body Mass 2021-03-14 00:00:00 30.3 kg/m2 [facility] 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 Index) [facility] Outreach Program BP Systolic 2021-03-14 00:00:00 114 mm[Hg] [facility] Body Weight 2021-03-14 00:00:00 3008 [oz_av] [facility] BP Diastolic 2021-03-14 00:00:00 68 mm[Hg] [facility] BP Diastolic 2021-01-16 00:00:00 74 mm[Hg] [facility] Height 2021-01-16 00:00:00 66 [in_i] [facility] BMI (Body Mass 2021-01-16 00:00:00 29.1 kg/m2 [facility] 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 Index) [facility] BP Systolic 2021-01-16 00:00:00 124 mm[Hg] [place] [facility] Body Weight 2021-01-16 00:00:00 2880 [oz_av] [place] [facility] BP Diastolic 2020-12-25 00:00:00 74 mm[Hg] [place] [facility] Height 2020-12-25 00:00:00 66 [in_i] [place] [facility] BMI (Body Mass 2020-12-25 00:00:00 28.9 kg/m2 [place] 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 Index) [facility] BP Systolic 2020-12-25 00:00:00 134 mm[Hg] [place] [facility] Body Weight 2020-12-25 00:00:00 2864 [oz_av] [place] [facility] Height 2020-09-03 00:00:00 66 [in_i] [place] [facility] BMI (Body Mass 2020-09-03 00:00:00 29.9 kg/m2 [place] 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 Index) [facility] Body Weight 2020-09-03 00:00:00 185 [lb_av] [place] [facility] BMI (Body Mass 2020-06-14 00:00:00 29.9 kg/m2 [place] 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 Index) [facility] BP Systolic 2020-06-14 00:00:00 138 mm[Hg] [place] [facility] Body Weight 2020-06-14 00:00:00 2964.8 [oz_av] [place] 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 BP Diastolic 2020-06-14 00:00:00 80 mm[Hg] [place] [facility] Height 2020-06-14 00:00:00 66 [in_i] [place] [facility] BP Diastolic 2020-05-24 00:00:00 80 mm[Hg] [place] [facility] Height 2020-05-24 00:00:00 66 [in_i] [place] [facility] BMI (Body Mass 2020-05-24 00:00:00 29.5 kg/m2 [place] 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 Index) [facility] BP Systolic 2020-05-24 00:00:00 134 mm[Hg] [facility] Body Weight 2020-05-24 00:00:00 2928 [facility] BP Diastolic 2018-11-10 00:00:00 80 mm[Hg] [facility] Height 2018-11-10 00:00:00 66 [in_i] [facility] BMI (Body Mass 2018-11-10 00:00:00 30.8 kg/m2 [place] 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 Medical Index) Group BP Systolic 2018-11-10 00:00:00 140 mm[Hg] [facility] Body Weight 2018-11-10 00:00:00 191 [facility] BP Diastolic 2018-10-27 00:00:00 83 mm[Hg] [facility] Height 2018-10-27 00:00:00 66 [in_i] [facility] BMI (Body Mass 2018-10-27 00:00:00 30.8 kg/m2 [place] 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 Medical Index) Group BP Systolic 2018-10-27 00:00:00 141 mm[Hg] [facility] Body Weight 2018-10-27 00:00:00 191 [facility]_av] [facility] Procedures Procedure Date / Time Performed Performing Clinician [facility] e US, duplex, venous, 2020-12-25 00:00:00 Scout bales [facility] lower extremity Health Outreach Program Screening for 2020-07-04 00:00:00 Dean Ep iscopal Malignant Neoplasm of Health Out reach Colon Program unlisted imaging order 2018-10-27 00:00:00 [facility] Plan of Care Planned Activity Planned Date Details Comments Source Diagnostic Test 2021-03-14 CBC w/ auto diff [code [place] Pending 00:00:00 = CBC w/ auto diff] [facility] Diagnostic Test 2021-03-14 C reactive protein, Leora stein Pending 00:00:00 QN, serum or plasma [facility] [code = C reactive [facility] Program protein, QN, serum or plasma] Diagnostic Test 2021-03-14 ESR (erythrocyte [place] Pending 00:00:00 sedimentation rate), [facility] blood [code = ESR Outreach P rogram (erythrocyte sedimentation rate), blood] Diagnostic Test 2021-03-14 CMP, serum or plasma Abdul remedios Pending 00:00:00 [code = CMP, serum or [facility] plasma] Outreach Progra m Diagnostic Test 2021-03-14 microalbumin/creatinin [place] Pending 00:00:00 e, mass ratio, urine [facility] [code = Outreach Progra m microalbumin/creatinin e, mass ratio, urine] Diagnostic Test 2021-03-14 SERG (antinuclear [place] Pending 00:00:00 antibodies) screen, [facility] serum [code = SERG Outreach P rogram (antinuclear antibodies) screen, serum] Diagnostic Test 2021-03-14 albumin/creatinine, [place] Pending 00:00:00 mass ratio, urine [facility] [code = Outreach Progra albumin/creatinine, mass ratio, urine] Diagnostic Test 2021-03-14 vitamin D, 25-hydroxy, [place] Pending 00:00:00 total, serum [code = [facility] vitamin D, 25-hydroxy, [facility] Program total, serum] Diagnostic Test 2021-03-14 lipid panel, serum [place] 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 Pending 00:00:00 [code = lipid panel, [facility] serum] Outreach Progra m Diagnostic Test 2021-03-14 BNP (B-type [place] Pending 00:00:00 natriuretic peptide), [facility] serum or plasma [code [facility] = BNP (B-type natriuretic peptide), serum or plasma] Diagnostic Test 2021-03-14 magnesium, serum or [place] Pending 00:00:00 plasma [code = [facility] magnesium, serum or Outreach Program plasma] Diagnostic Test 2021-03-14 CMP, serum or plasma Abdul remedios Pending 00:00:00 [code = CMP, serum or [facility] plasma] Outreach Progra m Diagnostic Test 2021-03-14 D-dimer, quant, plasma Delaney oliver Pending 00:00:00 [code = D-dimer, [facility] quant, plasma] Outreach Prog frantz Encounters Start End Encounter Admission Attending Care Care Encounter Source Date/Time Date/Time Type Type Clinicians Facility Department ID 2021-06-12 2021-06-16 Inpatient [facility], [facility] Urology [id number] [facility] 23:46:00 17:10:00 NOOR 2021-03-14 2021-03-14 Outpatient [place] [id number] [place] 04:46:00 04:[place] [id number] [facility] 2021-03-14 2021-03-14 Destiney [facility] [id number] [place] 00:00:00 00:00:00 Yareli Galindo, Christianity 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 2020-10-22 2020-10-22 Outpatient [place]AIMA [place] [id number] [place] 10:28:00 10:28:[place] [id number] [facility] 2020-09-20 2020-09-20 Outpatient MORAIMA [facility] [id number] [place] 02:15:00 02:[place] [id number] [facility] 2020-09-03 2020-09-03 Outpatient [place] [id number] [place] 12:03:00 12:03:[place] [id number] [facility] 2020-09-03 2020-09-03 Gayle [facility] [place] - [id number] [place] 00:00:00 00:00:00 Dean Dean MD: [address], [facility] [place], [place] [facility] [phone] Gokul barcenas , Ph. h (97) Program 2020-07-10 2020-07-10 Outpatient [place]A [place] [id number] [place] 06:51:00 06:[place] [id number] [facility] 2020-06-14 2020-06-14 Outpatient [place]A [place] [id number] [place] 01:41:00 01:41:[place] [id number] [facility] 2020-06-14 2020-06-14 Destiney [facility] - [id number] [place] 00:00:00 00:00:00 Yareli Galindo, [facility] Episc op MANAGER HEAVY EQUIPMENT: [address] [facility] [address], [facility] [address] Tessy renae , Ph. 2020-05-28 2020-05-28 Outpatient GILBERT_KAT [facility] [id number] [place] 10:16:[place] 10:[place] [id number] [facility] 2020-05-24 2020-05-24 Outpatient MORAIMA ERNANDEZ [facility] [id number] [place] 12:57:00 12:57:[place] [id number] [facility] 2020-05-24 2020-05-24 Destiney [facility] [place] - [id number] [place] 00:00:00 00:00:00 Yareli Moran da Tripp, [facility] Episc op MANAGER HEAVY EQUIPMENT: [address] [facility], [facility] [address] [facility] oc , Ph. 2020-05-22 2020-05-22 Outpatient MORAIMA [facility] [id number] [place] 10:32:00 10:32:[place] [id number] [facility] 2020-04-22 2020-04-22 Outpatient MARYANNE [facility] [id number] [place] 04:19:00 04:19:00 [id number] [facility] 2020-03-20 2020-03-20 Outpatient cMcDonald [facility] [place] 02:35:00 02:35:00 [id number] Medical Group 2018-11-10 2018-11-10 [facility] [place] [facility] [id number] [place] 00:00:00 00:00:00 Discovery rodolfo Hernandez MD: [address] [place] [address] [address], [place] [address] , Ph. 2018-10-27 2018-10-27 Sammy [facility] [place] - [id number] [place] 00:00:00 00:00:00 Discovery rodolfo Hernandez MD: [address] [place] [address] [address], [place] [address] , Ph. Results Test Description Test Time Test Comments Results Result Comments Source BLOOD CULTURE 2021-06-18 15:00:53 Test Item Value Reference Range Interpretation Comme nts CULTURE (BEAKER) (test code = 1095) No growth The specimen volume collected for this blood culture was below the optimum (10 mL per bottle or 20 mL total). Use of lower volumes may adversely affect recovery and/or detection times of some organisms.BLOOD [id number] 11:00:29 Test Item Value Reference Range Interpretation Comments CULTURE (BEAKER) (test No growth in 5 days code = 1095) The specimen volume collected for this blood culture was below the optimum (10 mL per bottle or 20 mL total). Use of lower volumes may adversely affect recovery and/or detection times of some organisms.COMPREHENSIVE METABOLIC PANEL 2021-06-16 04:53:34 Test Item Value Reference Range Interpretation Comments TOTAL PROTEIN 6.2 gm/dL 6.0-8.5 (BEAKER) (test code = 770) ALBUMIN (BEAKER) 2.6 g/dL 3.5-5.0 L (test code = 1145) ALKALINE PHOSPHATASE 152 U/L 30-115 H (BEAKER) (test code = 346) BILIRUBIN TOTAL 0.4 mg/dL 0.1-1.2 (BEAKER) (test code = 377) SODIUM (BEAKER) (test 140 meq/L 135-148 code = 381) POTASSIUM (BEAKER) 3.3 meq/L 3.6-5.5 L (test code = 379) CHLORIDE (BEAKER) 100 meq/L 98-106 (test code = 382) CO2 (BEAKER) (test 26 meq/L 20-29 code = 355) BLOOD UREA NITROGEN 25 mg/dL 10-26 (BEAKER) (test code = 354) CREATININE (BEAKER) 1.77 mg/dL 0.50-1.20 H (test code = 358) GLUCOSE RANDOM 89 mg/dL 70-110 (BEAKER) (test code = 652) CALCIUM (BEAKER) 7.2 mg/dL 8.5-10.5 L (test code = 697) AST (SGOT) (BEAKER) 26 U/L 5-40 (test code = 353) ALT (SGPT) (BEAKER) 11 U/L 5-50 (test code = 347) EGFR (BEAKER) (test 40 mL/min/1.73 ESTIMA CELESTE GFR IS code = 1092) sq m NOT ACCURATE CREATININE CLEARANCE IN PREDICTING GLOMERULAR FILTRATION RATE . ESTIMATED GFR I S NOT APPLICABLE FOR DIALYSIS PATIEN TS. Jointer Machine Operator ID - Idania [id number] 04:52:21 Test Item Value Reference Range Interpretation Comments MAGNESIUM (BEAKER) (test code = 1.3 mg/dL 1.5-3.0 L 627) Jointer Machine Operator ID - Idania [id number] 04:52:21 Test Item Value Reference Range Interpretation Comments PHOSPHORUS (BEAKER) (test code = 2.4 mg/dL 2.5-4.5 L 604) Jointer Machine Operator ID - Idania TCBC W/PLT COUNT & AUTO [id number] 04:47:35 Test Item Value Reference Range Interpretation Comments WHITE BLOOD CELL COUNT (BEAKER) 21.6 K/ L 4.0-10.0 H (test code = 775) RED BLOOD CELL COUNT (BEAKER) 3.65 M/ L 4.20-5.80 L (test code = 761) HEMOGLOBIN (BEAKER) (test code = 8.6 GM/DL 13.0-16.8 L 410) HEMATOCRIT (BEAKER) (test code = 28.6 % 36.0-50.0 L 411) MEAN CORPUSCULAR VOLUME (BEAKER) 78.4 fL 82.0-99.0 L (test code = 753) MEAN CORPUSCULAR HEMOGLOBIN 23.6 pg 27.0-33.0 L (BEAKER) (test code = 751) MEAN CORPUSCULAR HEMOGLOBIN CONC 30.1 GM/DL 32.0-36.0 L (BEAKER) (test code = 752) RED CELL DISTRIBUTION WIDTH 16.9 % 12.0-15.0 H (BEAKER) (test code = 412) PLATELET COUNT (BEAKER) (test 410 K/CU MM 150-430 code = 756) MEAN PLATELET VOLUME (BEAKER) 8.9 fL 6.0-11.5 (test code = 754) NUCLEATED RED BLOOD CELLS 0 /100 WBC 0-0 (BEAKER) (test code = 413) NEUTROPHILS RELATIVE PERCENT 81 % (BEAKER) (test code = 429) LYMPHOCYTES RELATIVE PERCENT 9 % (BEAKER) (test code = 430) MONOCYTES RELATIVE PERCENT 8 % (BEAKER) (test code = 431) EOSINOPHILS RELATIVE PERCENT 0 % (BEAKER) (test code = 432) BASOPHILS RELATIVE PERCENT 0 % (BEAKER) (test code = 437) NEUTROPHILS ABSOLUTE COUNT 17.49 K/ L 1.80-8.00 H (BEAKER) (test code = 670) LYMPHOCYTES ABSOLUTE COUNT 2.01 K/ L 1.48-4.50 (BEAKER) (test code = 414) MONOCYTES ABSOLUTE COUNT (BEAKER) 1.75 K/ L 0.00-1.30 H (test code = 415) EOSINOPHILS ABSOLUTE COUNT 0.05 K/ L 0.00-0.50 (BEAKER) (test code = 416) BASOPHILS ABSOLUTE COUNT (BEAKER) 0.06 K/ L 0.00-0.20 (test code = 417) IMMATURE GRANULOCYTES-RELATIVE 1 % 0-0 H PERCENT (BEAKER) (test code = 2801) COMPREHENSIVE METABOLIC [id number] 05:47:41 Test Item Value Reference Range Interpretation Comments TOTAL PROTEIN 6.1 gm/dL 6.0-8.5 (BEAKER) (test code = 770) ALBUMIN (BEAKER) 2.5 g/dL 3.5-5.0 L (test code = 1145) ALKALINE PHOSPHATASE 143 U/L 30-115 H (BEAKER) (test code = 346) BILIRUBIN TOTAL 0.4 mg/dL 0.1-1.2 (BEAKER) (test code = 377) SODIUM (BEAKER) (test 141 meq/L 135-148 code = 381) POTASSIUM (BEAKER) 3.0 meq/L 3.6-5.5 L (test code = 379) CHLORIDE (BEAKER) 101 meq/L 98-106 (test code = 382) CO2 (BEAKER) (test 25 meq/L 20-29 code = 355) BLOOD UREA NITROGEN 43 mg/dL 10-26 H (BEAKER) (test code = 354) CREATININE (BEAKER) 3.25 mg/dL 0.50-1.20 H (test code = 358) GLUCOSE RANDOM 104 mg/dL 70-110 (BEAKER) (test code = 652) CALCIUM (BEAKER) 7.3 mg/dL 8.5-10.5 L (test code = 697) AST (SGOT) (BEAKER) 18 U/L 5-40 (test code = 353) ALT (SGPT) (BEAKER) 10 U/L 5-50 (test code = 347) EGFR (BEAKER) (test 20 mL/min/1.73 ESTIMA CELESTE GFR IS code = 1092) sq m NOT ACCURATE CREATININE CLEARANCE IN PREDICTING GLOMERULAR FILTRATION RATE . ESTIMATED GFR I S NOT APPLICABLE FOR DIALYSIS PATIEN TS. Jointer Machine Operator ID - [id number] 05:47:23 Test Item Value Reference Range Interpretation Comments MAGNESIUM (BEAKER) (test code = 1.3 mg/dL 1.5-3.0 L 627) Jointer Machine Operator ID - [id number] 05:47:23 Test Item Value Reference Range Interpretation Comments PHOSPHORUS (BEAKER) (test code = 3.3 mg/dL 2.5-4.5 604) Jointer Machine Operator ID - NLYLECBC W/PLT COUNT & AUTO [id number] 04:50:21 Test Item Value Reference Range Interpretation Comments WHITE BLOOD CELL COUNT (BEAKER) 18.2 K/ L 4.0-10.0 H (test code = 775) RED BLOOD CELL COUNT (BEAKER) 3.43 M/ L 4.20-5.80 L (test code = 761) HEMOGLOBIN (BEAKER) (test code = 8.4 GM/DL 13.0-16.8 L 410) HEMATOCRIT (BEAKER) (test code = 26.5 % 36.0-50.0 L 411) MEAN CORPUSCULAR VOLUME (BEAKER) 77.3 fL 82.0-99.0 L (test code = 753) MEAN CORPUSCULAR HEMOGLOBIN 24.5 pg 27.0-33.0 L (BEAKER) (test code = 751) MEAN CORPUSCULAR HEMOGLOBIN CONC 31.7 GM/DL 32.0-36.0 L (BEAKER) (test code = 752) RED CELL DISTRIBUTION WIDTH 16.8 % 12.0-15.0 H (BEAKER) (test code = 412) PLATELET COUNT (BEAKER) (test 379 K/CU MM 150-430 code = 756) MEAN PLATELET VOLUME (BEAKER) 8.9 fL 6.0-11.5 (test code = 754) NUCLEATED RED BLOOD CELLS 0 /100 WBC 0-0 (BEAKER) (test code = 413) NEUTROPHILS RELATIVE PERCENT 81 % (BEAKER) (test code = 429) LYMPHOCYTES RELATIVE PERCENT 8 % (BEAKER) (test code = 430) MONOCYTES RELATIVE PERCENT 9 % (BEAKER) (test code = 431) EOSINOPHILS RELATIVE PERCENT 0 % (BEAKER) (test code = 432) BASOPHILS RELATIVE PERCENT 0 % (BEAKER) (test code = 437) NEUTROPHILS ABSOLUTE COUNT 14.85 K/ L 1.80-8.00 H (BEAKER) (test code = 670) LYMPHOCYTES ABSOLUTE COUNT 1.54 K/ L 1.48-4.50 (BEAKER) (test code = 414) MONOCYTES ABSOLUTE COUNT (BEAKER) 1.58 K/ L 0.00-1.30 H (test code = 415) EOSINOPHILS ABSOLUTE COUNT 0.06 K/ L 0.00-0.50 (BEAKER) (test code = 416) BASOPHILS ABSOLUTE COUNT (BEAKER) 0.05 K/ L 0.00-0.20 (test code = 417) IMMATURE GRANULOCYTES-RELATIVE 1 % 0-0 H PERCENT (BEAKER) (test code = 2801) COMPREHENSIVE METABOLIC [id number] 05:57:54 Test Item Value Reference Range Interpretation Comments TOTAL PROTEIN 6.3 gm/dL 6.0-8.5 (BEAKER) (test code = 770) ALBUMIN (BEAKER) 2.6 g/dL 3.5-5.0 L (test code = 1145) ALKALINE PHOSPHATASE 168 U/L 30-115 H (BEAKER) (test code = 346) BILIRUBIN TOTAL 0.5 mg/dL 0.1-1.2 (BEAKER) (test code = 377) SODIUM (BEAKER) (test 139 meq/L 135-148 code = 381) POTASSIUM (BEAKER) 4.1 meq/L 3.6-5.5 (test code = 379) CHLORIDE (BEAKER) 104 meq/L 98-106 (test code = 382) CO2 (BEAKER) (test 20 meq/L 20-29 code = 355) BLOOD UREA NITROGEN 74 mg/dL 10-26 H (BEAKER) (test code = 354) CREATININE (BEAKER) 7.19 mg/dL 0.50-1.20 H (test code = 358) GLUCOSE RANDOM 102 mg/dL 70-110 (BEAKER) (test code = 652) CALCIUM (BEAKER) 8.0 mg/dL 8.5-10.5 L (test code = 697) AST (SGOT) (BEAKER) 17 U/L 5-40 (test code = 353) ALT (SGPT) (BEAKER) 11 U/L 5-50 (test code = 347) EGFR (BEAKER) (test 8 mL/min/1.73 ESTIMAT ED GFR IS code = 1092) sq m NOT ACCURATE CREATININE CLEARANCE IN PREDICTING GLOMERULAR FILTRATION RATE . ESTIMATED GFR I S NOT APPLICABLE FOR DIALYSIS PATIEN TS. Jointer Machine Operator ID - [id number] 05:57:27 Test Item Value Reference Range Interpretation Comments PHOSPHORUS (BEAKER) (test code = 5.0 mg/dL 2.5-4.5 H 604) Jointer Machine Operator ID - [id number] 05:57:26 Test Item Value Reference Range Interpretation Comments MAGNESIUM (BEAKER) (test code = 1.7 mg/dL 1.5-3.0 627) Jointer Machine Operator ID - NLYLECBC W/PLT COUNT & AUTO [id number] 05:31:27 Test Item Value Reference Range Interpretation Comments WHITE BLOOD CELL COUNT (BEAKER) 20.8 K/ L 4.0-10.0 H (test code = 775) RED BLOOD CELL COUNT (BEAKER) 4.05 M/ L 4.20-5.80 L (test code = 761) HEMOGLOBIN (BEAKER) (test code = 9.7 GM/DL 13.0-16.8 L 410) HEMATOCRIT (BEAKER) (test code = 30.4 % 36.0-50.0 L 411) MEAN CORPUSCULAR VOLUME (BEAKER) 75.1 fL 82.0-99.0 L (test code = 753) MEAN CORPUSCULAR HEMOGLOBIN 24.0 pg 27.0-33.0 L (BEAKER) (test code = 751) MEAN CORPUSCULAR HEMOGLOBIN CONC 31.9 GM/DL 32.0-36.0 L (BEAKER) (test code = 752) RED CELL DISTRIBUTION WIDTH 17.2 % 12.0-15.0 H (BEAKER) (test code = 412) PLATELET COUNT (BEAKER) (test 407 K/CU MM 150-430 code = 756) MEAN PLATELET VOLUME (BEAKER) 8.7 fL 6.0-11.5 (test code = 754) NUCLEATED RED BLOOD CELLS 0 /100 WBC 0-0 (BEAKER) (test code = 413) NEUTROPHILS RELATIVE PERCENT 87 % (BEAKER) (test code = 429) LYMPHOCYTES RELATIVE PERCENT 5 % (BEAKER) (test code = 430) MONOCYTES RELATIVE PERCENT 7 % (BEAKER) (test code = 431) EOSINOPHILS RELATIVE PERCENT 0 % (BEAKER) (test code = 432) BASOPHILS RELATIVE PERCENT 0 % (BEAKER) (test code = 437) NEUTROPHILS ABSOLUTE COUNT 18.13 K/ L 1.80-8.00 H (BEAKER) (test code = 670) LYMPHOCYTES ABSOLUTE COUNT 1.05 K/ L 1.48-4.50 L (BEAKER) (test code = 414) MONOCYTES ABSOLUTE COUNT (BEAKER) 1.35 K/ L 0.00-1.30 H (test code = 415) EOSINOPHILS ABSOLUTE COUNT 0.05 K/ L 0.00-0.50 (BEAKER) (test code = 416) BASOPHILS ABSOLUTE COUNT (BEAKER) 0.03 K/ L 0.00-0.20 (test code = 417) IMMATURE GRANULOCYTES-RELATIVE 1 % 0-0 H PERCENT (BEAKER) (test code = 2801) BASIC METABOLIC [id number] 20:52:17 Test Item Value Reference Range Interpretation Comments SODIUM (BEAKER) 139 meq/L 135-148 (test code = 381) POTASSIUM (BEAKER) 4.8 meq/L 3.6-5.5 (test code = 379) CHLORIDE (BEAKER) 105 meq/L 98-106 (test code = 382) CO2 (BEAKER) (test 18 meq/L 20-29 L code = 355) BLOOD UREA NITROGEN 90 mg/dL 10-26 H (BEAKER) (test code = 354) CREATININE (BEAKER) 9.00 mg/dL 0.50-1.20 H (test code = 358) GLUCOSE RANDOM 140 mg/dL 70-110 H (BEAKER) (test code = 652) CALCIUM (BEAKER) 8.1 mg/dL 8.5-10.5 L (test code = 697) EGFR (BEAKER) (test 6 mL/min/1.73 ESTIMAT ED GFR IS code = 1092) sq m NOT ACCURATE CREATININE CLEARANCE IN PREDICTING GLOMERULAR FILTRATION RATE . ESTIMATED GFR I S NOT APPLICABLE FOR DIALYSIS PATIEN TS. Jointer Machine Operator ID - NLYLEBASIC METABOLIC [id number] 17:59:59 Test Item Value Reference Range Interpretation Comments SODIUM (BEAKER) 139 meq/L 135-148 (test code = 381) POTASSIUM (BEAKER) 5.2 meq/L 3.6-5.5 Specimen slightly (test code = 379) hemolyzed CHLORIDE (BEAKER) 103 meq/L 98-106 (test code = 382) CO2 (BEAKER) (test 18 meq/L 20-29 L code = 355) BLOOD UREA NITROGEN 95 mg/dL 10-26 H (BEAKER) (test code = 354) CREATININE (BEAKER) 9.66 mg/dL 0.50-1.20 H Specimen slightly (test code = 358) hemolyzed GLUCOSE RANDOM 172 mg/dL 70-110 H (BEAKER) (test code = 652) CALCIUM (BEAKER) 8.1 mg/dL 8.5-10.5 L (test code = 697) EGFR (BEAKER) (test 6 mL/min/1.73 ESTIMAT ED GFR IS code = 1092) sq m NOT ACCURATE CREATININE CLEARANCE IN PREDICTING GLOMERULAR FILTRATION RATE . ESTIMATED GFR I S NOT APPLICABLE FOR DIALYSIS PATIEN TS. 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 PROCEDURE: Informed consentwas obtained. Patient's medication list was reviewed. Timeout procedure was performed. All elements of strict sterile barrier were employed, including cap, mask, sterile gloves, and sterile drape. Skinwas prepped with ChloraPrep. 1% Xylocaine anesthesia utilized. Moderate conscious sedation was achieved utilizing one mg IV Versed and 50 ug IV Fentanyl while continuously monitoring cardiorespiratory function. The patient was monitored by the radiology nurse. Sedation time was 20 minutes. Initial access of each collecting system was achieved under CT guidance, with 6 [address] left in place. Each collecting system was opacified. A glide catheter followed by Amplatz stiff guidewire were advanced down each ureter into the urinary bladder. On each side, an 8 German, 24 cm nephroureteral stent was placed with proximal loops reformed in the renal pelves and distal loops in the urinary bladder. Each catheter was secured in place with 2-0 silk suture and adhesive dressing. These tubes were capped and left to internal drainage. Fluoroscopy time: 6.3 minutes Radiation dose (Ka,r): 110 mGy Signed: Kyle Guillaume MDReport Verified Date/Time: 06/13/2021 12:32:35 Reading Location: [facility] Diagnostic Imaging Reading Room - [facility] 1.310.12 CT, ABDOMEN, WITHOUT [id number] 12:29:00 Unlisted Reason for Exam - Click Yes and Enter Reason Below->YesUnlisted Reason for Exam->bilateral hydronephrosisWill this procedure require oral contrast?->[facility] : 1960 Sex: MFINAL REPORT CT ABDOMEN WITHOUT CONTRAST History provided: Metastatic cancer with bilateral obstructive uropathy. Bilateral percutaneous nephrostomies requested. CT employedfor initial access. PROCEDURE: Informed consent was obtained. Patient's medication list was reviewed. Timeout procedure was performed. Skin was prepped with ChloraPrep. 1% Xylocaine anesthesia utilized. Moderate conscious sedation was achieved utilizing one mg IV Versed and 50 ug IV Fentanyl while continuously monitoring cardiorespiratory function. The patient was monitored by the radiology nurse. Sedation time was 30 minutes. The patient was scanned in the prone position. Each dilated collecting system was separately accessed under CT guidance with 21-gauge needle. Over a 0.018 guidewire, 6 German access sheaths was advanced and secured in place. The patient was transported to special proceduresfor completion of nephroureteral stent procedure. COMMENT: This exam was performed according to our departmental dose- optimization program, which includes automated exposure control, adjustment of the mA and/or kV according to patient size and/or use of iterative reconstruction technique. Signed: Kyle Guillaume MDReport Verified Date/Time: 06/13/2021 12:29:28 Reading Location: [facility] Diagnostic Imaging Reading Room [place] [address] 1.310.12 PROTHROMBIN TIME/[id number] 09:20:19 Test Item Value Reference Range Interpretation Comments PROTIME (BEAKER) 11.8 seconds 9.8-12.0 Final Infor mation (test code = 759) (Auto Outp ut) INR (BEAKER) (test 1.08 See_Comment Final Inf ormation code = 370) (Auto Output) [Automated mess age] The system [employer] generated this result transmitted ref erence range: <=5.90. The reference range was not used to int erpret this result as normal/abnormal . RECOMMENDED COUMADIN/WARFARIN INR THERAPY RANGESSTANDARD DOSE: 2.0 - 3.0 Includes: PROPHYLAXIS forvenous thrombosis, systemic embolization; TREATMENT for venous thrombosis and/or pulmonary embolus.HIGH RISK: Target INR is 2.5-3.5 for patients with mechanical heart valves.URINALYSIS WITH MICROSCOPIC IF INDICATED 2021-06-13 06:05:53 Test Item Value Reference Range Interpretation Comments COLOR (BEAKER) (test code = 470) Yellow CLARITY (BEAKER) (test code = 469) Clear SPECIFIC GRAVITY UA (BEAKER) (test <= 1.001-1.035 code = 468) PH UA (BEAKER) (test code = 467) 6.5 5.0-8.0 PROTEIN UA (BEAKER) (test code = Negative Negative 464) GLUCOSE UA (BEAKER) (test code = Negative Negative 365) KETONES UA (BEAKER) (test code = Negative Negative 371) BILIRUBIN UA (BEAKER) (test code = Negative Negative 462) BLOOD UA (BEAKER) (test code = 461) Negative Negative NITRITE UA (BEAKER) (test code = Negative Negative 465) LEUKOCYTE ESTERASE UA (BEAKER) Negative Negative (test code = 466) UROBILINOGEN UA (BEAKER) (test code 0.2 mg/dL 0.2-1.0 = 463) SOURCE(BEAKER) (test code = 2795) CBC W/PLT COUNT & AUTO [id number] 05:12:24 Test Item Value Reference Range Interpretation Comments WHITE BLOOD CELL COUNT (BEAKER) 24.2 K/ L 4.0-10.0 H (test code = 775) RED BLOOD CELL COUNT (BEAKER) 3.96 M/ L 4.20-5.80 L (test code = 761) HEMOGLOBIN (BEAKER) (test code = 9.5 GM/DL 13.0-16.8 L 410) HEMATOCRIT (BEAKER) (test code = 30.1 % 36.0-50.0 L 411) MEAN CORPUSCULAR VOLUME (BEAKER) 76.0 fL 82.0-99.0 L (test code = 753) MEAN CORPUSCULAR HEMOGLOBIN 24.0 pg 27.0-33.0 L (BEAKER) (test code = 751) MEAN CORPUSCULAR HEMOGLOBIN CONC 31.6 GM/DL 32.0-36.0 L (BEAKER) (test code = 752) RED CELL DISTRIBUTION WIDTH 17.1 % 12.0-15.0 H (BEAKER) (test code = 412) PLATELET COUNT (BEAKER) (test 394 K/CU MM 150-430 code = 756) MEAN PLATELET VOLUME (BEAKER) 8.9 fL 6.0-11.5 (test code = 754) NUCLEATED RED BLOOD CELLS 0 /100 WBC 0-0 (BEAKER) (test code = 413) NEUTROPHILS RELATIVE PERCENT 88 % (BEAKER) (test code = 429) LYMPHOCYTES RELATIVE PERCENT 5 % (BEAKER) (test code = 430) MONOCYTES RELATIVE PERCENT 6 % (BEAKER) (test code = 431) EOSINOPHILS RELATIVE PERCENT 0 % (BEAKER) (test code = 432) BASOPHILS RELATIVE PERCENT 0 % (BEAKER) (test code = 437) NEUTROPHILS ABSOLUTE COUNT 21.30 K/ L 1.80-8.00 H (BEAKER) (test code = 670) LYMPHOCYTES ABSOLUTE COUNT 1.21 K/ L 1.48-4.50 L (BEAKER) (test code = 414) MONOCYTES ABSOLUTE COUNT (BEAKER) 1.33 K/ L 0.00-1.30 H (test code = 415) EOSINOPHILS ABSOLUTE COUNT 0.02 K/ L 0.00-0.50 (BEAKER) (test code = 416) BASOPHILS ABSOLUTE COUNT (BEAKER) 0.04 K/ L 0.00-0.20 (test code = 417) IMMATURE GRANULOCYTES-RELATIVE 1 % 0-0 H PERCENT (BEAKER) (test code = 2801) COMPREHENSIVE METABOLIC [id number] 04:14:33 Test Item Value Reference Range Interpretation Comments TOTAL PROTEIN 6.1 gm/dL 6.0-8.5 (BEAKER) (test code = 770) ALBUMIN (BEAKER) 2.5 g/dL 3.5-5.0 L (test code = 1145) ALKALINE PHOSPHATASE 173 U/L 30-115 H (BEAKER) (test code = 346) BILIRUBIN TOTAL 0.4 mg/dL 0.1-1.2 (BEAKER) (test code = 377) SODIUM (BEAKER) (test 136 meq/L 135-148 code = 381) POTASSIUM (BEAKER) 6.1 meq/L 3.6-5.5 HH (test code = 379) CHLORIDE (BEAKER) 105 meq/L 98-106 (test code = 382) CO2 (BEAKER) (test 17 meq/L 20-29 L code = 355) BLOOD UREA NITROGEN 107 mg/dL 10-26 H (BEAKER) (test code = 354) CREATININE (BEAKER) 11.55 mg/dL 0.50-1.20 H (test code = 358) GLUCOSE RANDOM 73 mg/dL 70-110 (BEAKER) (test code = 652) CALCIUM (BEAKER) 8.1 mg/dL 8.5-10.5 L (test code = 697) AST (SGOT) (BEAKER) 19 U/L 5-40 (test code = 353) ALT (SGPT) (BEAKER) 11 U/L 5-50 (test code = 347) EGFR (BEAKER) (test 5 mL/min/1.73 ESTIMAT ED GFR IS code = 1092) sq m NOT ACCURATE CREATININE CLEARANCE IN PREDICTING GLOMERULAR FILTRATION RATE . ESTIMATED GFR I S NOT APPLICABLE FOR DIALYSIS PATIEN TS. Jointer Machine Operator ID - [id number] Auto Differential panel - [id number] 00:00:00 Test Item Value Reference Range Interpretation Comments Leukocytes [#/volume] in Blood 8.2 x10e3/uL 3.4-10.8 by Automated count (test code = 6690-2) Erythrocytes [#/volume] in 4.49 x10e6/uL 4.14-5.80 Blood by Automated count (test code = 789-8) Hemoglobin [Mass/volume] in 12.6 g/dL 13.0-17.7 L Blood (test code = 718-7) Hematocrit [Volume Fraction] of 39.5 % 37.5-51.0 Blood by Automated count (test code = 4544-3) MCV [Entitic volume] by 88 fL 79-97 Automated count (test code = 787-2) MCH [Entitic mass] by Automated 28.1 pg 26.6-33.0 count (test code = 785-6) MCHC [Mass/volume] by Automated 31.9 g/dL 31.5-35.7 count (test code = 786-4) Erythrocyte distribution width 11.9 % 11.6-15.4 [Ratio] by Automated count (test code = 788-0) Platelets [#/volume] in Blood 317 x10e3/uL 150-450 by Automated count (test code = 777-3) Neutrophils/100 leukocytes in 68 % not estab. Blood by Automated count (test code = 770-8) Lymphocytes/100 leukocytes in 16 % not estab. Blood by Automated count (test code = 736-9) Monocytes/100 leukocytes in 10 % not estab. Blood by Automated count (test code = 5905-5) Eosinophils/100 leukocytes in 4 % not estab. Blood by Automated count (test code = 713-8) Basophils/100 leukocytes in 1 % not estab. Blood by Automated count (test code = 706-2) immature cells (test code = home health aide caregiver immature cells) Neutrophils [#/volume] in Blood 5.7 x10e3/uL 1.4-7.0 by Automated count (test code = 751-8) Lymphocytes [#/volume] in Blood 1.3 x10e3/uL 0.7-3.1 by Automated count (test code = 731-0) Monocytes [#/volume] in Blood 0.8 x10e3/uL 0.1-0.9 by Automated count (test code = 742-7) Eosinophils [#/volume] in Blood 0.3 x10e3/uL 0.0-0.4 by Automated count (test code = 711-2) Basophils [#/volume] in Blood 0.0 x10e3/uL 0.0-0.2 by Automated count (test code = 704-7) Immature granulocytes/100 1 % not estab. leukocytes in Blood by Automated count (test code = 94877-7) Immature granulocytes 0.0 x10e3/uL 0.0-0.1 [#/volume] in Blood by Automated count (test code = 43345-8) Nucleated erythrocytes/100 home health aide caregiver leukocytes [Ratio] in Blood by Automated count (test code = 35009-0) Morphology [Interpretation] in home health aide caregiver Blood Narrative (test code = 10192-2) [facility] ProgramComprehensive metabolic 2000 panel - Serum or [id number] 00:00:00 Test Item Value Reference Range Interpretation [...] by Creatinine-based formula (CKD-EPI) (test code = 75178-1) Glomerular filtration 126 mL/min/1.73 >59 rate/1.73 sq M.predicted among blacks [Volume Rate/Area] in Serum, Plasma or Blood by Creatinine-based formula (CKD-EPI) (test code = 66440-6) Urea nitrogen/Creatinine 24 9-20 H [Mass Ratio] [...] 8.7-10.2 Serum or Plasma (test code = 12278-5) Protein [Mass/volume] in 7.1 g/dL 6.0-8.5 Serum or Plasma (test code = 2885-2) Albumin [Mass/volume] in 4.0 g/dL 3.8-4.9 Serum or Plasma (test code = 1751-7) Globulin [Mass/volume] in 3.1 g/dL 1.5-4.5 Serum by calculation (test code = 81490-8) Albumin/Globulin [Mass Ratio] 1.3 1.2-2.2 in Serum or Plasma (test code = 1759-0) Bilirubin.total [Mass/volume] 0.3 mg/dL 0.0-1.2 in Serum or Plasma (test code = 1974-) Alkaline phosphatase 99 IU/L 48-121 [Enzymatic activity/volume] in Serum or Plasma (test code = 6768-6) Aspartate aminotransferase 30 IU/L 0-40 [Enzymatic activity/volume] in Serum or Plasma (test code = 1920-8) Alanine aminotransferase 16 IU/L 0-44 [Enzymatic activity/volume] in Serum or Plasma (test code = 174-6) [facility] [Mass/volume] in Platelet poor [id number] 00:00:00 Test Item Value Reference Range Interpretation Comments Fibrin D-dimer FEU 0.82 mg/L feu 0.00-0.49 H [Mass/volume] in Platelet poor plasma (test code = 84878-7) [facility] 2020-12-26 00:00:00 Test Item Value Reference Range Interpretation Comments Erythrocyte sedimentation rate by 40 mm/HR 0-30 H Westergren method (test code = 4537-7) [facility]
[2021-07-18 17:04] LABS: Absolute Lymphocytes (CBC) 0.6 K/uL (0.7-4.9); Hematocrit 24.3 % (39.6-49.0); Lymphocytes % 2.1 % (15.3-44.8); MPV 6.1 fL (7.6-11.3); RBC Red Blood Cell Count 3.18 M/uL (4.33-5.43)
[2021-07-18 17:27] LABS: Albumin 1.4 g/dL (3.4-5.0); Bilirubin Total 0.6 mg/dL (0.2-1.0); Potassium 4.9 mmol/L (3.5-5.1); Protein, Total 6.7 g/dL (6.4-8.2)
--- NOTE | 2021-07-18 17:27 | RAD REPORT ---
EXAM DESCRIPTION: RAD - Chest Single View - 07/18/2021 5:02 pm CLINICAL HISTORY: edema Chest pain. COMPARISON: Chest Single View dated 06/12/2021; Stone Protocol dated 06/12/2021 FINDINGS: Portable technique limits examination quality. Small left pleural effusion is seen with haziness in the left lung base likely atelectasis. Mild inte rstitial pulmonary edema is noted. The heart is normal in size.
--- NOTE | 2021-07-18 18:40 | RAD REPORT ---
EXAM DESCRIPTION: CT - Stone Protocol - 07/18/2021 6:22 pm CLINICAL HISTORY: Flank pain. kidney failure COMPARISON: Chest Single View dated 07/18/2021; Stone Protocol dated 06/12/2021hest Single View dated 07/18/2021; Stone Protocol dated 06/12/2021; Pet Ct Whole Body dated 07/10/2021 TECHNIQUE: Axial images were obtained without oral or IV contrast. Lack of contrast limits solid org an and vascular assessment. The [id number] spans the entirety of the system partially obscuring uppermost abdomen and lung bases. Coronal reformatted images were obtained and reviewed. All CT scans are performed using dose optimization technique as appropriate and may include automated exposure control or mA/KV adjustment according to patient size. FINDINGS: Small right and moderate left pleural effusion noted. Airspace opacity is present in the l eft lung base. Moderate edema is seen of the soft tissues. Gallbladder appears distended. There is vague diminished density in the right lobe anteriorly. Full a ssessment of liver parenchyma is limited by lack of contrast. The spleen is normal sized. The pancrea s and adrenal glands within normal limits. Bilateral percutaneous nephrostomy tubes are in place. Tate ateral ureteral stents are also noted. Stones are present in the renal pelvis bilaterally with mild h ydronephrosis present. . Large destructive soft tissue mass is present in left hemipelvis with destruction of the left acetabu lum noted. Large masses in left inguinal region with significant adenopathy in both inguinal regions which has progressed. For example, the large hemipelvis destructive mass currently measures 9.4 x 7.3 cm previously 8.2 x 5.8 cm. Large mass in the left inguinal region currently measures 7.2 x 6.8 cm, previously 7.1 x 6.1 cm. Overall, pelvic and retroperitoneal adenopathy has mildly progressed. IMPRESSION: Since 06/12/2021, there has been mild progression in the pathologic lymphadenopathy as w ell as large destructive left hemipelvis mass and large mass in the left inguinal region. Bilateral ureteral stents as well as percutaneous nephrostomy tubes are in place. There is mild hydro nephrosis bilaterally with stones present in both renal pelves. Gallbladder distension. Areas of diminished density has developed in the right lobe of the liver anteriorly. Recommend follow up nonemergent MRI liver protocol for further evaluation. Small right small to moderate left pleural effusion with airspace opacity present left lung base prob ably atelectasis. Degree of this finding appears similar to the comparison study.
--- NOTE | 2021-07-18 19:43 | ER ---
Nurse's Notes [facility] Name: Lul Calvillo Age: 60 yrs Sex: Male : 1960 Arrival Date: 07/18/2021 Time: 12:57 Bed 15 Private MD: Diagnosis: Other acute kidney failure;Unspecified hydronephrosis;Calculus of kidney Presentation: 07/18 13:41 Chief complaint: Patient states: Blood drawn two days ago (Dr. Walsh) showed decreasing ll1 kidney function. Was told to come to ED for further eval. Has two nephrostomy tubes. Painful urination for at least 1 week. No fever, some nausea. Coronavirus screen: Vaccine status: Patient reports being unvaccinated. Client denies travel out of the [place] in the last 14 days. At this time, the client does not indicate any symptoms associated with coronavirus-19. Ebola Screen: Patient denies travel to an Ebola-affected area in the 21 days before illness onset. Initial Sepsis Screen: Does the patient meet any 2 criteria? HR > 90 bpm. No. Patient's initial sepsis screen is negative. Does the patient have a suspected source of infection? Yes: Dysuria/Frequency/Urgency/UTI. Risk Assessment: Do you want to hurt yourself or someone else? Patient reports no desire to harm self or others. Onset of symptoms was July 21, 2021. 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 - Social history:: Smoking status: Patient denies any tobacco usage or history of. Screenin:14 Abuse screen: Denies threats or abuse. Nutritional screening: Had unintentional weight ss7 loss of 10 pounds or more. hx of cancer. Tuberculosis screening: No symptoms or risk factors identified. Fall Risk IV access (20 points). Assessment: 17:12 General: Appears ill, well groomed, Behavior is calm, cooperative, appropriate for age. ss7 Pain: Denies pain. Neuro: Level of Consciousness is awake, alert, obeys commands, Oriented to person, place, time, situation. Cardiovascular: Heart tones S1 S2. Cardiovascular: Edema is 2+ to ble. Respiratory: Breath sounds are clear bilaterally. GI: No deficits noted. Abdomen is round distended. : bilateral nephrostomy tubes. EENT: No deficits noted. Derm: Skin is pale. 19:30 General: Appears in no apparent distress. comfortable, well groomed, well developed, tk1 Behavior is calm, cooperative, appropriate for age. Pain: Denies pain. Neuro: Level of Consciousness is awake, alert, obeys commands, Oriented to. Cardiovascular: Heart tones S1 S2 Capillary refill < 3 seconds is brisk in bilateral fingers Edema is 2+ to left midcalf, left ankle, left foot, right midcalf, right ankle and right foot. Respiratory: Breath sounds are clear bilaterally. 19:30 Respiratory: Breath sounds are clear bilaterally. GI: No deficits noted. Abdomen is tk1 round distended. : : catheter into kidney per patient's . EENT: No deficits noted. No signs and/or symptoms were reported regarding the EENT system. Derm: Skin is Patient has vitiligo. 23:39 Reassessment: Attempted to call report to receiving nurse at [facility]. tk1 Transfer center states, nurse is in a patient's room. ED number given to [facility] to call back. 07/19 00:20 Reassessment: Report given to PHONG Cheng. tk1 00:23 Reassessment: Report given to EMS. Patient to be transported to [facility] RM 4N07. tk1 Vital Signs: 07/18 13:41 BP 109 / 70; Pulse 98; Resp 17; Temp 99.1; Pulse Ox 99% ; Weight 80.74 kg; Height 5 ft. ll1 6 in. (167.64 cm); Pain 4/10; 17:13 BP 115 / 73; Pulse 94; Resp 18; Pulse Ox 98% on R/A; ss7 19:30 BP 114 / 75; Pulse 10; Resp 18; Temp 98.9; Pulse Ox 97% ; Pain 0/10; tk1 21:10 BP 106 / 75 LA Supine (auto/reg); Pulse 90 MON; Resp 18 S; Pulse Ox 97% on R/A; Pain tk1 0/10; 22:00 BP 118 / 74 LA Supine (auto/reg); Pulse 101 MON; Resp 18 S; Pulse Ox 98% on R/A; tk1 23:00 BP 119 / 82; Pulse 106 MON; Resp 18 S; Pulse Ox 97% on R/A; Pain 0/10; tk1 07/19 00:00 BP 118 / 78 LA Supine (auto/reg); Pulse 112 MON; Resp 18 S; Temp 98.3; Pulse Ox 98% on tk1 R/A; Pain 0/10; 07/18 13:41 Body Mass Index 28.73 (80.74 kg, 167.64 cm) ll1 ED Course: 07/18 12:57 Patient arrived in ED. kz 13:43 Triage completed. ll1 13:44 Arm band placed on. ll1 16:15 Patient placed in an exam room, on a stretcher. ll1 16:16 Adriel Orozco PA is PHCP. cp 16:16 Joyce Will MD is Attending Physician. cp 16:16 Angie Rubi RN is Primary Nurse. ss7 17:02 XRAY Chest (1 view) In Process Unspecified. EDMS 17:12 CBC with Diff Sent. ss7 17:12 CMP Sent. ss7 17:12 Lipase Sent. ss7 17:14 Patient has correct armband on for positive identification. Bed in low position. Call ss7 light in reach. Side rails up X2. Adult w/ patient. Warm blanket given. 17:14 No provider procedures requiring assistance completed. Inserted saline lock: 20 gauge ss7 in right hand, using aseptic technique. 18:21 CT Stone Protocol In Process Unspecified. EDMS 19:06 Report given to PHONG Anderson. ss7 19:30 Pulse ox on. NIBP on. tk1 19:30 IV is patent, is intact, with fluids infusing freely, with good blood return. tk1 20:15 initiated a transfer with Miguel from [facility]. mw2 20:46 COVID-19/FLU A+B (Document "Date of Onset" if Symptomatic) Sent. tk1 21:09 connected Adriel BACA with the urologist from [facility]. mw2 21:38 connected Adriel BACA with the hospitalist from [facility]. mw2 21:42 administrative approval given by Miguel Miller/ patient has been accepted to [address] [facility] bed 4 N 07/ Dr. Kaufman accepted the patient in transfer/ report to be called to [phone]. 23:39 transfer transportation to receiving facility. tk1 23:39 Patient transferred, IV remains in place. tk1 Administered Medications: 20:46 Dru grams of (Cefepime 2 grams, NS 0.9% 100 ml) Route: IVPB; Rate: 200 ml/hr; tk1 Infused Over: 30 mins; Site: right hand; Delivery: Primary tubing; 21:20 Follow up: IV Status: Completed infusion; IV Intake: 100ml tk1 Intake: 21:20 IV: 100ml; Total: 100ml. tk1 Outcome: 19:42 ER care complete, transfer ordered by . terrie 23:39 Transferred to [facility]. tk1 23:39 Transferred by ground EMS Transfer form completed. 23:39 Condition: stable 23:39 Instructed on the need for transfer. 07/19 00:28 Patient left the ED. tk1 Signatures: Dispatcher [employer] EDMS Adriel Orozco PA PA cp Maciej Ye mw2 Melany Alvarez RN RN ll1 Alexandria Marroquin tk1 Angie Rubi RN RN ss7 Helena Cuadra
--- NOTE | 2021-07-18 19:43 | EDPHYS ---
Physician Documentation [facility] Name: Lul Calvillo Age: 60 yrs Sex: Male : 1960 Arrival Date: 07/18/2021 Time: 12:57 Bed 15 Private MD: ED Physician Joyce Will HPI: 07/18 16:35 This 60 yrs old Male presents to ER via Wheelchair with complaints of Advised cp by cancer center to have kidneys looked at. 16:35 The patient presents with urinary symptoms, decreased urine output. cp 16:35 Spouse reports patient was referred to ED for evaluation and concern for worsening cp kidney function test. Patient is an oncology patient of DR Walsh and currently receiving radiation treatment for left groin mass. Patient with history of kidney failure and was transferred to [facility] last month where he had bilateral nephrostomy tubes placed. Spouse reports patient does urinate on own so nephrostomy tubes are clamped and not actively draining. No fevers recorded. Patient c/o burning with urination. 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 - Social history:: Smoking status: Patient denies any tobacco usage or history of. ROS: 16:40 Respiratory: Negative for cough, shortness of breath, wheezing. cp 16:40 Eyes: Negative for injury, pain, redness, and discharge. cp 16:40 Constitutional: Negative for body aches, chills, fever, poor PO intake. 16:40 Cardiovascular: Negative for chest pain, edema, palpitations. 16:40 Abdomen/GI: Negative for abdominal pain, vomiting, diarrhea, constipation. 16:40 : Positive for burning with urination. 16:40 Neuro: Negative for altered mental status, dizziness, headache, weakness. 16:40 All other systems are negative. Exam: 16:45 Constitutional: The patient appears in no acute distress, alert, awake, cp non-diaphoretic, non-toxic, well developed, well nourished. 16:45 Head/Face: Normocephalic, atraumatic. cp 16:45 Eyes: Periorbital structures: appear normal, Conjunctiva: normal, no exudate, no injection, Sclera: no appreciated abnormality, Lids and lashes: appear normal, bilaterally. 16:45 ENT: External ear(s): are unremarkable, Nose: is normal, Mouth: Lips: moist, Oral mucosa: moist, Posterior pharynx: Airway: no evidence of obstruction, patent. 16:45 Chest/axilla: Inspection: normal, Palpation: is normal, no crepitus, no tenderness. 16:45 Cardiovascular: Rate: normal, Rhythm: regular, Edema: pedal edema, that is marked, ankle edema, that is marked, JVD: is not appreciated. 16:45 Respiratory: the patient does not display signs of respiratory distress, Respirations: normal, no use of accessory muscles, no retractions, labored breathing, is not present, Breath sounds: decreased breath sounds, are not appreciated, wheezing: is not appreciated. 16:45 Abdomen/GI: Inspection: distension, that is moderate, in the right lower quadrant and left lower quadrant, Bowel sounds: active, all quadrants, Palpation: soft, in all quadrants, mild abdominal tenderness, in the right lower quadrant and left lower quadrant. 16:45 Back: bilateral nephrostomy tubes in place that are clamped with no drainage bags attached. 16:45 Neuro: Orientation: to person, place \\T\\ time. Mentation: is normal. Vital Signs: 13:41 BP 109 / 70; Pulse 98; Resp 17; Temp 99.1; Pulse Ox 99% ; Weight 80.74 kg; Height 5 ft. ll1 6 in. (167.64 cm); Pain 4/10; 17:13 BP 115 / 73; Pulse 94; Resp 18; Pulse Ox 98% on R/A; ss7 19:30 BP 114 / 75; Pulse 10; Resp 18; Temp 98.9; Pulse Ox 97% ; Pain 0/10; tk1 21:10 BP 106 / 75 LA Supine (auto/reg); Pulse 90 MON; Resp 18 S; Pulse Ox 97% on R/A; Pain tk1 0/10; 22:00 BP 118 / 74 LA Supine (auto/reg); Pulse 101 MON; Resp 18 S; Pulse Ox 98% on R/A; tk1 23:00 BP 119 / 82; Pulse 106 MON; Resp 18 S; Pulse Ox 97% on R/A; Pain 0/10; tk1 03/19 00:00 BP 118 / 78 LA Supine (auto/reg); Pulse 112 MON; Resp 18 S; Temp 98.3; Pulse Ox 98% on tk1 R/A; Pain 0/10; 07/18 13:41 Body Mass Index 28.73 (80.74 kg, 167.64 cm) ll1 MDM: 07/18 16:20 Patient medically screened. cp 17:40 Physician consultation: Apolonia Gooden MD was contacted at 17:40, regarding cp patient's condition, reports patient's baseline creatine had returned to less than 2 since previous hospitalization and while monitoring has seen creatine slowly elevated to over 2. Referred patient to ED for evaluation. 19:30 Physician consultation: Abdullahi Prado MD was called at 19:30, was contacted at 19:30, cp regarding consult, patient's condition, reports he will be available as phone consult for hospitalist only until 2300 today. Recommends unclamping nephrostomy tubes to allow drainage, flushing with preservative free 10 cc NS bid and collecting urine sample for culture. Administer IV antibiotics. 19:35 Data reviewed: vital signs, nurses notes, lab test result(s), radiologic studies, CT cp scan, and as a result, I will administer antibiotics Cefepime. 19:40 Physician consultation: ER physician DR De La Torre and COSMETICS PRESSER Reji Lan concerning admission cp and DR Prado availability. 19:45 ED course: Will transfer patient. cp 21:18 ED course: consult with DR Ivey, urology at [facility], will consult on patient cp with transfer to hospitalist services. 21:25 Physician consultation: DR Elliott, hospitalist with [facility] in [facility] [place] cp \\[id number] would like patient transferred to [facility] for continuity of care due to nephrostomy tubes being placed at their location. 07/18 16:29 Order name: CBC with Diff; Complete Time: 17:31 cp 07/18 17:32 Interpretation: Normal except: WBC 26.40; RBC 3.18; HGB 7.5; HCT 24.3; MCV 76.4; MCH cp 23.6; MCHC 30.9; RDW 18.7; MPV 6.1; JEANNA% 92.7; LYM% 2.1; NEUT A 24.4; LYMA 0.6. 07/18 16:29 Order name: CMP; Complete Time: 17:31 cp 07/18 17:32 Interpretation: Normal except: NA 135; BUN 42; CRE 2.53; GFR 26; AST 45; ALK 259; CA cp 8.3; ALB 1.4; GLOB 5.3; A/G 0.3. 07/18 16:29 Order name: Lipase; Complete Time: 17:31 cp 07/18 19:37 Order name: Procalcitonin 07/18 16:32 Order name: XRAY Chest (1 view); Complete Time: 17:31 cp 07/18 17:47 Order name: CT Stone Protocol; Complete Time: 18:42 cp 07/18 19:40 Order name: Urine Culture: from nephrostomy tube 07/18 19:40 Order name: Urine Microscopic Only: from nephrostomy tube 07/18 20:22 Order name: COVID-19/FLU A+B (Document "Date of Onset" if Symptomatic); Complete Time: mw2 21:21 07/18 16:29 Order name: IV Saline Lock; Complete Time: 17:12 cp 07/18 16:29 Order name: Labs collected and sent; Complete Time: 17:12 cp 07/18 19:40 Order name: Urine Dipstick-Ancillary (obtain specimen): from nephrostomy tube cp Administered Medications: 20:46 Dru grams of (Cefepime 2 grams, NS 0.9% 100 ml) Route: IVPB; Rate: 200 ml/hr; tk1 Infused Over: 30 mins; Site: right hand; Delivery: Primary tubing; 21:20 Follow up: IV Status: Completed infusion; IV Intake: 100ml tk1 Disposition Summary: 07/18/21 19:42 Transfer Ordered Transfer Location: [facility] cp Reason: Higher level of care cp Condition: Stable cp Problem: new cp Symptoms: have improved cp Accepting Physician: DR Kaufman(07/19/21 00:28) tk1 Diagnosis - Other acute kidney failure cp - Unspecified hydronephrosis cp - Calculus of kidney cp Forms: - Medication Reconciliation Form cp - SBAR form cp Signatures: Dispatcher [employer] EDMS Reji Lan, [employer]MENT TEST ENGINEER-Cla1 Adriel Orozco PA PA cp Lewis, Lynsay, RN RN ll1 Alexandria Marroquin tk1 Corrections: (The following items were deleted from the chart) 21:43 19:42 Doctor cp cp 07/19 00:28 07/18 21:43 DR Kaufman cp tk1 07/19 21:26 07/18 19:35 Data reviewed: vital signs, nurses notes, lab test result(s), radiologic cp studies, CT scan, and as a result, I will administer antibiotics Cefepime, transfer patient, cp
[2021-07-18] MEDS ORDERED: CEFEPIME 2 GM VIAL ONE (20:45)
[2021-07-18] MEDS ORDERED: NA CHLORIDE 0.9% 100 ML IV ONE (20:46)
[2021-07-18 21:17] LABS: SARS-COV-2 RT PCR NEGATIVE (NEGATIVE)
[2021-07-19 02:16] VITALS: BP 118/78; TEMP 98.3; O2SAT 98
== END 2021-07-19 00:28 | disposition short-term general hospital (02) ==
LOC: ER 12:52
DX: N17.8 Other acute kidney failure (principal); N13.30 Unspecified hydronephrosis; N20.0 Calculus of kidney; Z85.828 Personal history of other malignant neoplasm of skin; Z20.822 Contact with and (suspected) exposure to COVID-19
CPT/HCPCS: 96365; 85025; 36415; 83690; 80053; 84145; 0240U; 76377; 74176; 71045; 99285; J0692